=== PATIENT | male | born 1960 | race Caucasian/White ===

== ENCOUNTER → 2017-11-15 11:43 | Outpatient (CLI) | payer OTHER, SELFPAY ==
[2017-11-15 12:17] LABS: Alanine Aminotransferase 108 IU/L (21-72); Albumin 4.4 g/dL (3.5-5.0); Albumin Globulin Ratio 1.5 (1.0-2.8); Alkaline Phosphatase 49 U/L (38-126); Aspartate Aminotransferase 100 IU/L (17-59); Bilirubin Total 0.5 mg/dL (0.2-1.3); Blood Urea Nitrogen 13 mg/dL (9-20); Calcium 9.6 mg/dL (8.4-10.2); Carbon Dioxide 28 mmol/L (22-32); Chloride 102 mmol/L (98-107); Estimated Glomerular Filt Rate > 60.0 mL/min (>60); Glucose 107 mg/dL (70-100); HEMOLYSIS 15 (0-50); Potassium 4.1 mmol/L (3.4-5.1); Sodium 141 mmol/L (137-145); Total Protein 7.4 g/dL (6.3-8.2)
[2017-11-15 12:34] LABS: Free T3, Triiodothyronine Free 3.23 pg/mL (2.77-5.27); Free T4, Direct Thyroxine 0.76 ng/dL (0.78-2.19)
[2017-11-15 12:48] LABS: Thyroid Stimulating Hormone 9.58 uIU/mL (0.47-4.68)
== END ==
PROVIDERS: PCP Family Medicine; Visit Provider Family Medicine
DX: F10.10 Alcohol abuse, uncomplicated (principal); R79.89 Other specified abnormal findings of blood chemistry; E03.9 Hypothyroidism, unspecified
CPT/HCPCS: 36415; 80053; 84439; 84443; 84481

== ENCOUNTER → 2017-12-31 12:12 | Outpatient (CLI) | payer OTHER, SELFPAY ==
[2017-12-31 13:31] LABS: Alanine Aminotransferase 73 IU/L (21-72); Albumin 4.4 g/dL (3.5-5.0); Albumin Globulin Ratio 1.5 (1.0-2.8); Alkaline Phosphatase 46 U/L (38-126); Aspartate Aminotransferase 56 IU/L (17-59); BUN Creatinine Ratio 12.7 (6-22); Bilirubin Total 0.3 mg/dL (0.2-1.3); Blood Urea Nitrogen 14 mg/dL (9-20); Calcium 9.7 mg/dL (8.4-10.2); Carbon Dioxide 24 mmol/L (22-32); Chloride 101 mmol/L (98-107); Estimated Glomerular Filt Rate > 60.0 mL/min (>60); Globulin 2.9 g/dL (1.7-4.1); Glucose 73 mg/dL (70-100); HEMOLYSIS < 15 (0-50); Potassium 5.3 mmol/L (3.4-5.1); Sodium 140 mmol/L (137-145); Total Protein 7.3 g/dL (6.3-8.2)
[2017-12-31 14:02] LABS: Thyroid Stimulating Hormone 3.22 uIU/mL (0.47-4.68)
== END ==
PROVIDERS: PCP Family Medicine; Visit Provider Family Medicine
DX: E03.9 Hypothyroidism, unspecified (principal); R74.8 Abnormal levels of other serum enzymes
CPT/HCPCS: 36415; 80053; 84443

== ENCOUNTER → 2020-05-26 09:34 | Outpatient (CLI) | payer OTHER, SELFPAY ==
[2020-05-26] MEDS: COVID-19 VACC, Ad26(JANSSEN)/PF 0.5 ML IM (09:39)
== END ==
PROVIDERS: PCP Family Medicine; Visit Provider Internal Medicine
DX: Z23 Encounter for immunization (principal)
CPT/HCPCS: 0031A; 91303

== ENCOUNTER → 2020-06-03 07:19 | Outpatient (CLI) | payer OTHER, SELFPAY ==
[2020-06-03 08:30] LABS: Add Manual Diff / Slide Review NO; Basophils Absolute Auto 100 /uL (0-100); Basophils Percent Auto 1.1 % (0-2); Eosinophils Absolute Auto 100 /uL (0-450); Eosinophils Percent Auto 1.9 % (2-4); Hematocrit 46.5 % (41-53); Hemoglobin 15.3 g/dL (13.5-17.5); Lymphocytes Absolute Auto 1600 /uL (1100-4500); Lymphocytes Percent Auto 23.6 % (25-40); Mean Corpuscular HGB Conc 32.9 % (30-36); Mean Corpuscular Hemoglobin 33.3 PG (26-34); Mean Corpuscular Volume 100.9 fL (80-100); Monocytes Absolute Auto 800 /uL (0-900); Monocytes Percent Auto 12.1 % (3-14); Neutrophils Absolute Auto 4200 /uL (1500-7000); Neutrophils Percent Auto 61.3 % (50-75); Platelet Count 244 X10^3/uL (150-400); Red Blood Cell Count 4.61 X10^6/uL (4.5-5.9); Red Cell Distribution Width 14.5 % (11.6-14.8); White Blood Cell Count 6.9 X10^3/uL (4.5-11.0)
[2020-06-03 09:59] LABS: Alanine Aminotransferase 41 IU/L (<50); Albumin 4.4 g/dL (3.5-5.0); Albumin Globulin Ratio 1.4 (1.0-2.8); Alkaline Phosphatase 60 U/L (38-126); Aspartate Aminotransferase 49 IU/L (17-59); BUN Creatinine Ratio 13.8 (6-22); Bilirubin Total 0.4 mg/dL (0.2-1.3); Blood Urea Nitrogen 15 mg/dL (9-20); Calcium 10.2 mg/dL (8.4-10.2); Carbon Dioxide 22 mmol/L (22-32); Chloride 105 mmol/L (98-107); Cholesterol 227 mg/dL (140-199); Estimated Glomerular Filt Rate > 60.0 mL/min (>60); Globulin 3.2 g/dL (1.7-4.1); Glucose 112 mg/dL (70-100); HEMOLYSIS < 15 (0-50); Potassium 4.7 mmol/L (3.4-5.1); Sodium 138 mmol/L (137-145); Total Protein 7.6 g/dL (6.3-8.2); Triglycerides 93 mg/dL (35-150)
[2020-06-03 10:10] LABS: Free T3, Triiodothyronine Free 3.32 pg/mL (2.77-5.27); Free T4, Direct Thyroxine 0.97 ng/dL (0.78-2.19); LDL Cholesterol Calculated 92 mg/dL (<100)
[2020-06-03 10:11] LABS: HDL Cholesterol 116 mg/dL (40-60)
[2020-06-03 10:24] LABS: Thyroid Stimulating Hormone 8.97 uIU/mL (0.47-4.68)
[2020-06-04 06:10] LABS: Thyroid Peroxidase Antibodies >600 IU/mL (0-34)
== END ==
PROVIDERS: PCP Naturopath; Referring Provider Naturopath; Visit Provider Naturopath
DX: Z00.00 Encounter for general adult medical examination without abnormal findings (principal); E06.3 Autoimmune thyroiditis; K52.831 Collagenous colitis
CPT/HCPCS: 36415; 80053; 80061; 84439; 84443; 84481; 85025; 86376

== ENCOUNTER → 2020-07-19 07:56 | Outpatient (CLI) | payer OTHER, SELFPAY ==
[2020-07-19 09:21] LABS: Free T3, Triiodothyronine Free 5.65 pg/mL (2.77-5.27); Free T4, Direct Thyroxine 1.61 ng/dL (0.78-2.19)
[2020-07-19 09:37] LABS: Thyroid Stimulating Hormone < 0.015 uIU/mL (0.47-4.68)
== END ==
PROVIDERS: PCP Naturopath; Referring Provider Naturopath; Visit Provider Naturopath
DX: E06.3 Autoimmune thyroiditis (principal)
CPT/HCPCS: 36415; 84439; 84443; 84481

== ENCOUNTER → 2021-06-23 07:35 | Outpatient (CLI) | payer OTHER, MEDICAID, SELFPAY ==
[2021-06-23 08:52] LABS: Hemoglobin A1C% w Est Avg Glu 5.8 % (4.0-6.0)
[2021-06-23 10:10] LABS: Free T3, Triiodothyronine Free 3.12 pg/mL (2.77-5.27); Free T4, Direct Thyroxine 0.77 ng/dL (0.78-2.19)
[2021-06-23 10:24] LABS: Thyroid Stimulating Hormone 0.148 uIU/mL (0.47-4.68)
[2021-06-24 06:54] LABS: Thyroid Peroxidase Antibodies >600 IU/mL (0-34)
== END ==
PROVIDERS: PCP Naturopath; Referring Provider Naturopath; Visit Provider Naturopath
DX: Z00.00 Encounter for general adult medical examination without abnormal findings (principal); K52.831 Collagenous colitis; E06.3 Autoimmune thyroiditis
CPT/HCPCS: 36415; 83036; 84439; 84443; 84481; 86376

== ENCOUNTER → 2022-02-21 07:48 | Outpatient (CLI) | payer OTHER, MEDICAID, SELFPAY ==
[2022-02-21 09:36] LABS: Free T3, Triiodothyronine Free 3.36 pg/mL (2.77-5.27); Free T4, Direct Thyroxine 0.92 ng/dL (0.78-2.19)
[2022-02-21 09:49] LABS: Thyroid Stimulating Hormone 19.7 uIU/mL (0.47-4.68)
[2022-02-22 07:09] LABS: Thyroid Peroxidase Antibodies >600 IU/mL (0-34)
== END ==
PROVIDERS: PCP Registered Nurse Diabetes Educator; Referring Provider Registered Nurse Diabetes Educator; Visit Provider Registered Nurse Diabetes Educator
DX: E03.9 Hypothyroidism, unspecified (principal)
CPT/HCPCS: 36415; 84439; 84443; 84481; 86376

== ENCOUNTER 2022-03-30 08:07 | Day surgery (SDC) | payer OTHER, MEDICAID, SELFPAY ==
[2022-03-30 08:16] VITALS: BP 142/85; PULSE 76; RESP 18; TEMP 36.4; O2SAT 100; BMI 33.9
[2022-03-30] MEDS: LACTATED RINGERS 1,000 ML 150 ML IV (08:39)
--- NOTE | 2022-03-30 09:15 | PM.HP.1 ---
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) Irritable bowel syndrome Peyronie disease Family & Social History Family History Father Diabetes mellitus Hypertension Cancer Atrial fibrillation Grandfather Diabetes mellitus Mother Cancer Social History: household members significant other,family lives independently Yes caregiver/support person No Tobacco & Substance use: Smoking Status Former smoker alcohol intake current alcohol intake frequency 3 or more drinks per day Substance Use Type marijuana Meds Home Medications and Allergies Home Medications Medication Instructions Recorded Confirmed Type levothyroxine 200 mcg tablet 200 mcg PO DAILY #60 tabs 03/15/22 03/15/22 Rx peg 3350-electrolytes 236 240 ml PO Q10M #4,000 mL 03/15/22 03/15/22 Rx gram-22.74 gram-6.74 gram-5.86 gram solution (Golytely) Rubed- Carditone 2 caplet PO DAILY 03/30/22 History Ruved- Join/Muscle Support 2 caplet PO DAILY 03/30/22 History cholecalciferol (vitamin D3) 50 50 mcg PO DAILY 03/30/22 03/30/22 History mcg (2,000 unit) tablet (Vitamin D3) Allergies Allergy/AdvReac Type Severity Reaction Status Date / Time Proton Pump Inhibitors AdvReac Mild skin Verified 03/30/22 08:17 jim leonardo Review of Systems Review of Systems ROS: Yes All systems reviewed with the patient and are negative except as otherwise documented Exam Vital Signs (past 8 hours): - 03/30/22 08:16 Temperature 97.5 F L Pulse Rate 76 Respiratory Rate 18 Blood Pressure 142/85 H Pulse Oximetry 100 Oxygen Delivery Method Room Air Oxygen Delivery Method Room Air Const General: cooperative, healthy appearing and comfortable [facility] Head: normal to inspection, normocephalic and atraumatic Face and sinus: normal facial exam Eyes General: appearance normal, both eyes and all related structures Neck Neck: full ROM and trachea midline Chest Chest: normal inspection of the chest Resp Effort & Inspection: normal respiratory effort and able to speak in complete sentences Cardio Rate: regular rate Rhythm: regular rhythm GI Palpation: soft Skin General: turgor normal Neuro General: patient alert, patient awake and patient oriented x3 Extrem General: normal to inspection Psych Appearance: grossly normal Judgment: judgment good Assessment & Plan Assessment & Plan narrative: h/o colon polyps Colonoscopy with MAC, possible polypectomy Time Spent With Patient Time with patient: less than 30 minutes Critical Care time: I spent a total of [] minutes of critical care time on this patient's care today; this time is exclusive of procedural time.
--- NOTE | 2022-03-30 09:39 | PM.OP.COLON ---
Operative Date/Time/Diagnoses Date of procedure: 03/30/22 Time of procedure: 09:39 Pre-op diagnosis: History of colon polyps Post-op diagnosis: same Procedure & Clinicians Study performed: Colonoscopy with MAC Same procedure as scheduled: Yes Indications: History of colon polyps Surgeon: Anna Mendez Procedure Notes Procedure in detail: Preop diagnosis: History of colon polyps Postop diagnosis: Same Operative procedure: Colonoscopy using MAC Surgeon: Lucy Mendez MD Findings: Diverticulosis. No polyps identified. Normal mucosa Procedure: Patient placed in lateral position. Rectal exam performed showing normal tone no masses. Scope was inserted into the rectum advanced to ileocecal valve with minimal difficulty. Insufflation and extraction scope and the above findings. Retroflex was included in the rectum Impression: Sigmoid diverticulosis of moderate size and number. No polyps identified. Plan: Repeat colonoscopy in 5 years Findings: divertiulosis Specimen(s): none sent Complications: none Post-procedure Recommendations: Colonoscopy in 5 years Follow up: as needed Disposition: PACU
[2022-03-30 09:40] VITALS: BP 114/66; PULSE 66; RESP 11; TEMP 36.1; O2SAT 96
[2022-03-30 09:47] VITALS: BP 116/75; PULSE 62; RESP 16; O2SAT 96
[2022-03-30 09:52] VITALS: BP 118/75; PULSE 69; RESP 16; TEMP 36.2; O2SAT 98
== END 2022-03-30 10:01 | disposition home or self-care (01) ==
PROVIDERS: PCP Registered Nurse Diabetes Educator; Referring Provider Surgery; Visit Provider Surgery
PROC: 0DJD8ZZ Inspection of Lower Intestinal Tract, Via Natural or Artificial Opening Endoscopic (ICD-10-PCS; CPT 45378; principal; 2022-03-30 09:15)
DX: Z12.11 Encounter for screening for malignant neoplasm of colon (principal); Z86.010 Personal history of colon polyps; K57.30 Diverticulosis of large intestine without perforation or abscess without bleeding
CPT/HCPCS: 45378; J2704

== ENCOUNTER → 2022-05-01 07:48 | Outpatient (CLI) | payer OTHER, MEDICAID, SELFPAY ==
--- NOTE | 2022-05-01 07:50 | DI.RAD.S_ITS ---
PROCEDURE: XR ANKLE RT MIN 3V INDICATIONS: eval chronic R ankle pain TECHNIQUE: 3 views of the ankle were acquired. COMPARISON: None. FINDINGS: Bones: No fractures or dislocations. Ankle mortise is normally aligned. No suspicious bony lesions. Well-defined plantar calcaneal enthesophyte is seen. Small dorsal calcaneal enthesophyte is also noted. Soft tissues: No tibiotalar joint effusion. Achilles tendon appears normal. IMPRESSION: Intact ankle mortise. No ankle fracture or dislocation. Calcaneal enthesophytes. Dictated by: Yg Coon M.D. on 05/01/2022 at 13:06 Approved by: Yg Coon M.D. on 05/01/2022 at 13:07
--- NOTE | 2022-05-01 07:50 | DI.RAD.S_ITS ---
PROCEDURE: XR LUMBAR SPINE MIN 4V INDICATIONS: BLE sciatica/LBP TECHNIQUE: 5 views of the lumbar spine were acquired, including bilateral oblique views. COMPARISON: None. FINDINGS: Bones: 5 nonrib-bearing vertebrae are present. There is straightening of normal lumbar lordosis. Degenerative endplate changes, loss of disc height and bilateral facet arthrosis is seen throughout lumbar spine most notably at L4-5 level. No vertebral body compression fractures. No suspicious bony lesions. Soft tissues: Overlying bowel gas pattern is normal. No suspicious soft tissue calcifications. Oblique images: No pars defects. Bilateral bony foraminal stenosis at L4-5 level is seen. IMPRESSION: 1. Mild degenerative disc disease throughout lumbar spine most notably at L4-5 level. No acute compression fracture or spondylolisthesis. 2. No pars defects. Mild bilateral bony foraminal stenosis at L4-5 level. Dictated by: Yg Coon M.D. on 05/01/2022 at 13:07 Approved by: Yg Coon M.D. on 05/01/2022 at 13:08
[2022-05-01 08:50] LABS: Hematocrit 44.8 % (41-53); Hemoglobin 15.2 g/dL (13.5-17.5); Mean Corpuscular Hemoglobin 33.8 PG (26-34); Mean Corpuscular Volume 99.4 fL (80-100); Platelet Count 231 X10^3/uL (150-400); Red Blood Cell Count 4.51 X10^6/uL (4.5-5.9); Red Cell Distribution Width 13.6 % (11.6-14.8); White Blood Cell Count 6.1 X10^3/uL (4.5-11.0)
[2022-05-01 09:17] LABS: Alanine Aminotransferase 25 IU/L (<50); Albumin 4.4 g/dL (3.5-5.0); Albumin Globulin Ratio 1.2 (1.0-2.8); Alkaline Phosphatase 59 U/L (38-126); Aspartate Aminotransferase 35 IU/L (17-59); BUN Creatinine Ratio 15.3 (6-22); Bilirubin Total 0.5 mg/dL (0.2-1.3); Blood Urea Nitrogen 18 mg/dL (9-20); Calcium 9.1 mg/dL (8.4-10.2); Carbon Dioxide 27 mmol/L (22-32); Chloride 105 mmol/L (98-107); Cholesterol 243 mg/dL (140-199); Estimated Glomerular Filt Rate > 60 mL/min (>60); Globulin 3.8 g/dL (1.7-4.1); Glucose 93 mg/dL (80-110); HEMOLYSIS < 15 (0-50); Potassium 4.6 mmol/L (3.4-5.1); Sodium 139 mmol/L (137-145); Total Protein 8.2 g/dL (6.3-8.2); Triglycerides 80 mg/dL (35-150); Uric Acid 9.3 mg/dL (3.5-8.5)
[2022-05-01 09:29] LABS: Hemoglobin A1C% w Est Avg Glu 5.8 % (4.0-6.0)
[2022-05-01 09:41] LABS: TSH w/ Reflex to FT4 0.88 uIU/mL (0.47-4.68)
[2022-05-01 09:52] LABS: HDL Cholesterol 116 mg/dL (40-60); LDL Cholesterol Calculated 111 mg/dL (<100)
== END ==
PROVIDERS: PCP Registered Nurse Diabetes Educator; Referring Provider Registered Nurse Diabetes Educator; Visit Provider Registered Nurse Diabetes Educator
DX: M54.41 Lumbago with sciatica, right side (principal); M54.42 Lumbago with sciatica, left side; M51.36 Other intervertebral disc degeneration, lumbar region; M48.061 Spinal stenosis, lumbar region without neurogenic claudication; M25.571 Pain in right ankle and joints of right foot; M77.31 Calcaneal spur, right foot; M25.50 Pain in unspecified joint; Z00.00 Encounter for general adult medical examination without abnormal findings; E03.8 Other specified hypothyroidism; E06.3 Autoimmune thyroiditis; G89.29 Other chronic pain
CPT/HCPCS: 36415; 72110; 73610; 80053; 80061; 83036; 84443; 84550; 85027

== ENCOUNTER → 2022-07-11 14:51 | Outpatient (CLI) | payer OTHER, MEDICAID, SELFPAY ==
[2022-07-11 15:28] LABS: D Dimer 1631 ng/ml (<500)
== END ==
PROVIDERS: PCP Registered Nurse Diabetes Educator; Referring Provider Family Medicine; Visit Provider Family Medicine
DX: M79.604 Pain in right leg (principal)
CPT/HCPCS: 36415; 85379

== ENCOUNTER → 2022-07-12 08:44 | Outpatient (CLI) | payer OTHER, MEDICAID, SELFPAY ==
--- NOTE | 2022-07-12 08:45 | DI.US.S_ITS ---
PROCEDURE: US PERIPH VENOUS LOW EXTREM RT INDICATIONS: RIGHT LEG PAIN/REDNESS. ? DVT. ELEVATED D DIMER TECHNIQUE: Real-time imaging, as well as color and pulse Doppler interrogation, were performed of the lower extremity deep veins from the inguinal ligament to the popliteal fossa. COMPARISON: None. FINDINGS: The common femoral, femoral and popliteal veins are normally compressible, and free of intraluminal thrombus. Color and pulse Doppler demonstrate normal phasic intraluminal flow. There is normal augmentation response to distal compression maneuver. IMPRESSION: Negative for deep venous thrombosis of the right lower extremity. Dictated by: Steve Powell M.D. on 07/12/2022 at 10:24 Approved by: Steve Powell M.D. on 07/12/2022 at 10:25
== END ==
PROVIDERS: PCP Registered Nurse Diabetes Educator; Referring Provider Family Medicine; Visit Provider Family Medicine
DX: M79.604 Pain in right leg (principal)
CPT/HCPCS: 93971

== ENCOUNTER → 2022-07-26 10:48 | Outpatient (CLI) | payer OTHER, MEDICAID, SELFPAY ==
[2022-07-26 12:01] LABS: Add Manual Diff / Slide Review NO; Basophils Absolute Auto 100 /uL (0-100); Basophils Percent Auto 1.1 % (0-2); Eosinophils Absolute Auto 100 /uL (0-450); Hematocrit 42.7 % (41-53); Hemoglobin 14.6 g/dL (13.5-17.5); Lymphocytes Absolute Auto 1300 /uL (1100-4500); Lymphocytes Percent Auto 17.3 % (25-40); Mean Corpuscular HGB Conc 34.2 % (30-36); Mean Corpuscular Hemoglobin 34.5 PG (26-34); Mean Corpuscular Volume 100.8 fL (80-100); Monocytes Absolute Auto 800 /uL (0-900); Neutrophils Absolute Auto 5200 /uL (1500-7000); Neutrophils Percent Auto 69.6 % (50-75); Platelet Count 231 X10^3/uL (150-400); Red Blood Cell Count 4.24 X10^6/uL (4.5-5.9); Red Cell Distribution Width 14.4 % (11.6-14.8); White Blood Cell Count 7.5 X10^3/uL (4.5-11.0)
[2022-07-26 12:08] LABS: Appearance Urine UA CLEAR; Bilirubin Urine UA NEGATIVE (NEGATIVE); Color Urine UA YELLOW; Glucose Urine UA NEGATIVE (Negative); Ketones Urine UA NEGATIVE (NEGATIVE); Leukocyte Esterase Urine UA NEGATIVE (NEGATIVE); Nitrite Urine UA NEGATIVE (Negative); Occult Blood Urine UA NEGATIVE (Negative); Protein Urine UA NEGATIVE (Negative); Specific Gravity Urine UA <=1.005 (1.000-1.035); Urobilinogen Urine UA 0.2 E.U./dL (0.2)
[2022-07-26 12:23] LABS: Bacteria Urine None Seen; RBC Urine None Seen (0-5/HPF); Squamous Epithelial Cell Urine None Seen (0-5/HPF); WBC Urine None Seen (0-5/HPF)
[2022-07-26 12:24] LABS: Culture Indicated Urine Cult Not Indicated
[2022-07-26 12:26] LABS: Alanine Aminotransferase 70 IU/L (<50); Albumin Globulin Ratio 1.3 (1.0-2.8); Alkaline Phosphatase 53 U/L (38-126); Aspartate Aminotransferase 65 IU/L (17-59); BUN Creatinine Ratio 10.6 (6-22); Bilirubin Total 0.3 mg/dL (0.2-1.3); Blood Urea Nitrogen 14 mg/dL (9-20); Carbon Dioxide 23 mmol/L (22-32); Chloride 105 mmol/L (98-107); Estimated Glomerular Filt Rate > 60 mL/min (>60); Glucose 82 mg/dL (80-110); HEMOLYSIS < 15 (0-50); Lipase 94 U/L (23-300); Potassium 4.6 mmol/L (3.4-5.1); Sodium 136 mmol/L (137-145)
[2022-07-26 12:47] LABS: TSH w/ Reflex to FT4 0.12 uIU/mL (0.47-4.68)
[2022-07-27 17:55] LABS: Interpretation Negative (Negative)
[2022-07-27 18:10] LABS: Deamidated Gliadin Ab IgA 4 units (0-19); Deamidated Gliadin Ab IgG 1 units (0-19); Immunoglobulin A,Qn 236 mg/dL (90-386); t-Transglutaminase IgA <2 U/mL (0-3)
== END ==
PROVIDERS: PCP Registered Nurse Diabetes Educator; Referring Provider Registered Nurse Diabetes Educator; Visit Provider Registered Nurse Diabetes Educator
DX: K52.831 Collagenous colitis (principal); R14.0 Abdominal distension (gaseous); R11.0 Nausea; R14.2 Eructation
CPT/HCPCS: 36415; 80053; 81001; 82784; 83013; 83516; 83690; 84439; 84443; 85025

== ENCOUNTER → 2022-08-03 07:39 | Outpatient (CLI) | payer OTHER, MEDICAID, SELFPAY ==
[2022-08-03 09:26] LABS: HEMOLYSIS < 15 (0-50); Iron 99 ug/dL (49-181)
[2022-08-03 09:29] LABS: Alanine Aminotransferase 61 IU/L (<50); Albumin 4.1 g/dL (3.5-5.0); Albumin Globulin Ratio 1.2 (1.0-2.8); Alkaline Phosphatase 60 U/L (38-126); Aspartate Aminotransferase 57 IU/L (17-59); BUN Creatinine Ratio 13.5 (6-22); Bilirubin Total 0.5 mg/dL (0.2-1.3); Blood Urea Nitrogen 14 mg/dL (9-20); Calcium 9.2 mg/dL (8.4-10.2); Carbon Dioxide 23 mmol/L (22-32); Chloride 103 mmol/L (98-107); Estimated Glomerular Filt Rate > 60 mL/min (>60); Globulin 3.3 g/dL (1.7-4.1); Glucose 94 mg/dL (80-110); HEMOLYSIS < 15 (0-50); Sodium 137 mmol/L (137-145); Total Protein 7.4 g/dL (6.3-8.2)
[2022-08-03 09:40] LABS: Percent Iron Saturation 28 % (20-50); Total Iron Binding Capacity 357 ug/dL (261-462); Transferrin 291 mg/dL (206-381)
[2022-08-03 10:04] LABS: Ferritin 72 ng/mL (18-464)
[2022-08-04 03:50] LABS: HBsAg Screen Negative (Negative); Hepatitis A Antibody IgM Negative (Negative); Hepatitis B Core Antibody IgM Negative (Negative); Hepatitis C Antibody Non Reactive (Non Reactive)
== END ==
PROVIDERS: PCP Registered Nurse Diabetes Educator; Referring Provider Registered Nurse Diabetes Educator; Visit Provider Registered Nurse Diabetes Educator
DX: F10.90 Alcohol use, unspecified, uncomplicated (principal); R11.0 Nausea; R74.8 Abnormal levels of other serum enzymes
CPT/HCPCS: 36415; 80053; 80074; 82728; 83540; 83550

== ENCOUNTER → 2022-08-09 06:44 | Outpatient (CLI) | payer OTHER, MEDICAID, SELFPAY ==
--- NOTE | 2022-08-09 06:45 | DI.US.S_ITS ---
PROCEDURE: US ABDOMEN LIMITED INDICATIONS: ABNORMAL LFTS; NAUSEA TECHNIQUE: Real-time scanning was performed of the abdominal and retroperitoneal organs, with image documentation. COMPARISON: None. FINDINGS: Liver: Increased liver echogenicity with posterior attenuation, most consistent with moderate to severe steatosis. Gallbladder: Cholelithiasis versus 4 millimeter benign polyps; no follow-up necessary given size. No wall thickening Biliary ducts: Intrahepatic bile ducts are non-dilated. Extrahepatic bile duct caliber measures 4 mm. Normal is 6-7 mm or less in diameter, or 10 mm or less post-cholecystectomy. Pancreas: Visualized portions of the pancreas are sonographically normal. Miscellaneous: No free abdominal fluid. IMPRESSION: Cholelithiasis versus small benign polyps. No wall thickening. No further follow-up required based on the size, if they are polyps. Moderate to severe steatosis. In the absence of alcohol use or other confounding factors, elevated LFTs may indicate non-alcoholic steatohepatitis (HANCOCK). Dictated by: Randal Horner M.D. on 08/09/2022 at 13:00 Approved by: Randal Horner M.D. on 08/09/2022 at 13:03
== END ==
PROVIDERS: PCP Registered Nurse Diabetes Educator; Referring Provider Registered Nurse Diabetes Educator; Visit Provider Registered Nurse Diabetes Educator
DX: K76.0 Fatty (change of) liver, not elsewhere classified (principal); R74.8 Abnormal levels of other serum enzymes; R11.0 Nausea; R14.0 Abdominal distension (gaseous); R14.2 Eructation; F10.90 Alcohol use, unspecified, uncomplicated
CPT/HCPCS: 76705

== ENCOUNTER → 2022-12-19 10:39 | Outpatient (CLI) | payer OTHER, MEDICAID, SELFPAY ==
[2022-12-24] LABS: Pancreatic Elastase, Fecal 244 (>200)
== END ==
PROVIDERS: PCP Registered Nurse Diabetes Educator; Referring Provider Specialist; Visit Provider Specialist
DX: K52.9 Noninfective gastroenteritis and colitis, unspecified (principal)
CPT/HCPCS: 82656

== ENCOUNTER → 2023-01-08 11:22 | Outpatient (CLI) | payer OTHER, MEDICAID, SELFPAY | PROVIDERS: PCP Registered Nurse Diabetes Educator; Referring Provider Registered Nurse Diabetes Educator; Visit Provider Registered Nurse Diabetes Educator | DX: E03.9 Hypothyroidism, unspecified (principal) | CPT/HCPCS: 36415; 84443 ==

== ENCOUNTER → 2023-03-08 08:02 | Outpatient (CLI) | payer OTHER, MEDICAID, SELFPAY ==
[2023-03-08 08:28] LABS: Hematocrit 43.9 % (41-53); Hemoglobin 14.9 g/dL (13.5-17.5); Mean Corpuscular HGB Conc 33.9 % (30-36); Mean Corpuscular Hemoglobin 33.7 PG (26-34); Mean Corpuscular Volume 99.4 fL (80-100); Platelet Count 315 X10^3/uL (150-400); Red Blood Cell Count 4.41 X10^6/uL (4.5-5.9); Red Cell Distribution Width 12.9 % (11.6-14.8); White Blood Cell Count 6.9 X10^3/uL (4.5-11.0)
[2023-03-08 08:33] LABS: Hemoglobin A1C% w Est Avg Glu 5.7 % (4.0-6.0)
[2023-03-08 08:56] LABS: Alanine Aminotransferase 46 IU/L (<50); Albumin 3.9 g/dL (3.5-5.0); Albumin Globulin Ratio 1.3 (1.0-2.8); Alkaline Phosphatase 44 U/L (38-126); Aspartate Aminotransferase 34 IU/L (17-59); Bilirubin Total 0.4 mg/dL (0.2-1.3); Blood Urea Nitrogen 13 mg/dL (9-20); Calcium 9.5 mg/dL (8.4-10.2); Carbon Dioxide 21 mmol/L (22-32); Chloride 108 mmol/L (98-107); Cholesterol 189 mg/dL (140-199); Estimated Glomerular Filt Rate > 60 mL/min (>60); Globulin 2.9 g/dL (1.7-4.1); Glucose 113 mg/dL (80-110); HDL Cholesterol 45 mg/dL (40-60); HEMOLYSIS < 15 (0-50); LDL Cholesterol Calculated 115 mg/dL (<100); Potassium 4.4 mmol/L (3.4-5.1); Sodium 136 mmol/L (137-145); Total Protein 6.8 g/dL (6.3-8.2); Triglycerides 143 mg/dL (35-150)
[2023-03-08 09:17] LABS: TSH w/ Reflex to FT4 1.76 uIU/mL (0.47-4.68)
== END ==
PROVIDERS: PCP Registered Nurse Diabetes Educator; Referring Provider Registered Nurse Diabetes Educator; Visit Provider Registered Nurse Diabetes Educator
DX: E78.00 Pure hypercholesterolemia, unspecified (principal); R73.03 Prediabetes; E03.8 Other specified hypothyroidism; E06.3 Autoimmune thyroiditis; R74.8 Abnormal levels of other serum enzymes; K58.0 Irritable bowel syndrome with diarrhea; K52.831 Collagenous colitis; E79.0 Hyperuricemia without signs of inflammatory arthritis and tophaceous disease; R03.0 Elevated blood-pressure reading, without diagnosis of hypertension
CPT/HCPCS: 36415; 80053; 80061; 83036; 84443; 84550; 85027

== ENCOUNTER → 2023-12-05 13:18 | Outpatient (CLI) | payer OTHER, MEDICAID, SELFPAY ==
[2023-12-05 13:46] LABS: Add Manual Diff / Slide Review NO; Basophils Absolute Auto 0 /uL (0-100); Basophils Percent Auto 0.8 % (0-2); Eosinophils Absolute Auto 100 /uL (0-450); Eosinophils Percent Auto 1.2 % (2-4); Hematocrit 43.9 % (41-53); Lymphocytes Absolute Auto 1000 /uL (1100-4500); Lymphocytes Percent Auto 16.6 % (25-40); Mean Corpuscular HGB Conc 34.1 % (30-36); Mean Corpuscular Hemoglobin 35.2 PG (26-34); Mean Corpuscular Volume 103.2 fL (80-100); Monocytes Absolute Auto 900 /uL (0-900); Monocytes Percent Auto 14.8 % (3-14); Neutrophils Absolute Auto 4000 /uL (1500-7000); Neutrophils Percent Auto 66.6 % (50-75); Platelet Count 165 X10^3/uL (150-400); Red Blood Cell Count 4.25 X10^6/uL (4.5-5.9); Red Cell Distribution Width 13.7 % (11.6-14.8); White Blood Cell Count 5.9 X10^3/uL (4.5-11.0)
[2023-12-05 14:20] LABS: Alanine Aminotransferase 133 IU/L (<50); Albumin 4.1 g/dL (3.5-5.0); Albumin Globulin Ratio 1.4 (1.0-2.8); Alkaline Phosphatase 102 U/L (38-126); Aspartate Aminotransferase 166 IU/L (17-59); Bilirubin Total 0.7 mg/dL (0.2-1.3); Blood Urea Nitrogen 17 mg/dL (9-20); Calcium 9.3 mg/dL (8.4-10.2); Carbon Dioxide 24 mmol/L (22-32); Chloride 101 mmol/L (98-107); Estimated Glomerular Filt Rate > 60 mL/min (>60); Globulin 2.9 g/dL (1.7-4.1); Glucose 121 mg/dL (80-110); HEMOLYSIS 15 (0-50); Magnesium 1.8 mg/dL (1.6-2.3); Potassium 4.6 mmol/L (3.4-5.1); Sodium 134 mmol/L (137-145)
[2023-12-05 14:36] LABS: Free T3, Triiodothyronine Free 3.39 pg/mL (2.77-5.27)
[2023-12-05 14:50] LABS: TSH w/ Reflex to FT4 2.91 uIU/mL (0.47-4.68)
[2023-12-05 15:09] LABS: Vitamin B12 553 pg/mL (239-931)
== END ==
PROVIDERS: PCP Registered Nurse Diabetes Educator; Referring Provider Physician Assistant; Visit Provider Physician Assistant
DX: R25.1 Tremor, unspecified (principal); E03.9 Hypothyroidism, unspecified; Z12.5 Encounter for screening for malignant neoplasm of prostate; R74.8 Abnormal levels of other serum enzymes; D75.89 Other specified diseases of blood and blood-forming organs
CPT/HCPCS: 36415; 80053; 80074; 82607; 83735; 84443; 84481; 85025; 86376; 87522; G0103

== ENCOUNTER → 2023-12-07 07:58 | Outpatient (CLI) | payer OTHER, MEDICAID, SELFPAY ==
[2023-12-09 05:40] LABS: HBsAg Screen Negative (Negative); Hepatitis A Antibody IgM Negative (Negative); Hepatitis B Core Antibody IgM Negative (Negative); Hepatitis C Antibody Non Reactive (Non Reactive)
== END ==
PROVIDERS: PCP Registered Nurse Diabetes Educator; Referring Provider Physician Assistant; Visit Provider Physician Assistant
DX: R74.8 Abnormal levels of other serum enzymes (principal); R63.4 Abnormal weight loss
CPT/HCPCS: 36415; 80074; 87522

== ENCOUNTER → 2024-01-28 10:24 | Outpatient (CLI) | payer OTHER, MEDICAID, SELFPAY ==
[2024-01-28 12:13] LABS: Alanine Aminotransferase 116 IU/L (<50); Albumin 3.6 g/dL (3.5-5.0); Albumin Globulin Ratio 1.2 (1.0-2.8); Alkaline Phosphatase 72 U/L (38-126); Aspartate Aminotransferase 187 IU/L (17-59); Bilirubin Total 0.5 mg/dL (0.2-1.3); Blood Urea Nitrogen 11 mg/dL (9-20); Calcium 9.1 mg/dL (8.4-10.2); Carbon Dioxide 28 mmol/L (22-32); Chloride 104 mmol/L (98-107); Estimated Glomerular Filt Rate > 60 mL/min (>60); Globulin 3.1 g/dL (1.7-4.1); Glucose 87 mg/dL (80-110); HEMOLYSIS < 15 (0-50); Potassium 4.6 mmol/L (3.4-5.1); Sodium 135 mmol/L (137-145); Total Protein 6.7 g/dL (6.3-8.2)
[2024-01-28 22:14] LABS: Prostate Specific Antigen 4.08 ng/mL (0.10-4.00)
== END ==
PROVIDERS: PCP Registered Nurse Diabetes Educator; Referring Provider Urology; Visit Provider Urology
DX: N40.1 Benign prostatic hyperplasia with lower urinary tract symptoms (principal); R97.20 Elevated prostate specific antigen [PSA]; R74.8 Abnormal levels of other serum enzymes
CPT/HCPCS: 80053; 84153

== ENCOUNTER → 2024-03-09 08:50 | Outpatient (CLI) | payer OTHER, SELFPAY ==
[2024-03-09 09:25] LABS: Hematocrit 44.5 % (41-53); Hemoglobin 15.1 g/dL (13.5-17.5); Mean Corpuscular Hemoglobin 34.9 PG (26-34); Mean Corpuscular Volume 102.6 fL (80-100); Platelet Count 315 X10^3/uL (150-400); Red Blood Cell Count 4.34 X10^6/uL (4.5-5.9); White Blood Cell Count 6.1 X10^3/uL (4.5-11.0)
[2024-03-09 09:37] LABS: Hemoglobin A1C% w Est Avg Glu 5.8 % (4.0-6.0)
[2024-03-09 09:48] LABS: Alanine Aminotransferase 32 IU/L (<50); Albumin 4.1 g/dL (3.5-5.0); Albumin Globulin Ratio 1.5 (1.0-2.8); Alkaline Phosphatase 52 U/L (38-126); Aspartate Aminotransferase 34 IU/L (17-59); BUN Creatinine Ratio 11.8 (6-22); Bilirubin Total 0.3 mg/dL (0.2-1.3); Blood Urea Nitrogen 14 mg/dL (9-20); Calcium 9.3 mg/dL (8.4-10.2); Carbon Dioxide 29 mmol/L (22-32); Chloride 103 mmol/L (98-107); Cholesterol 209 mg/dL (140-199); Estimated Glomerular Filt Rate > 60 mL/min (>60); Globulin 2.8 g/dL (1.7-4.1); Glucose 109 mg/dL (80-110); HDL Cholesterol 49 mg/dL (40-60); HEMOLYSIS < 15 (0-50); LDL Cholesterol Calculated 138 mg/dL (<100); Potassium 4.8 mmol/L (3.4-5.1); Sodium 137 mmol/L (137-145); Total Protein 6.9 g/dL (6.3-8.2); Triglycerides 109 mg/dL (35-150)
[2024-03-09 10:18] LABS: TSH w/ Reflex to FT4 1.93 uIU/mL (0.47-4.68)
== END ==
PROVIDERS: PCP Registered Nurse Diabetes Educator; Referring Provider Registered Nurse Diabetes Educator; Visit Provider Registered Nurse Diabetes Educator
DX: R73.03 Prediabetes (principal); E03.8 Other specified hypothyroidism; E06.3 Autoimmune thyroiditis; E78.5 Hyperlipidemia, unspecified; K52.831 Collagenous colitis; F10.90 Alcohol use, unspecified, uncomplicated
CPT/HCPCS: 36415; 80053; 80061; 83036; 84443; 85027

== ENCOUNTER → 2024-04-22 12:37 | Outpatient (CLI) | payer OTHER, SELFPAY ==
[2024-04-23 07:11] LABS: PSA Free % 21.1 % (.); PSA, Total 4.5 ng/mL (0.0-4.0)
== END ==
PROVIDERS: PCP Registered Nurse Diabetes Educator; Referring Provider Urology; Visit Provider Urology
DX: N40.1 Benign prostatic hyperplasia with lower urinary tract symptoms (principal); R97.20 Elevated prostate specific antigen [PSA]
CPT/HCPCS: 36415; 84153; 84154

== ENCOUNTER → 2024-08-10 10:21 | Outpatient (CLI) | payer OTHER, SELFPAY ==
[2024-08-10 11:55] LABS: Prostate Specific Antigen 6.57 ng/mL (0.10-4.00)
== END ==
PROVIDERS: PCP Registered Nurse Diabetes Educator; Referring Provider Urology; Visit Provider Urology
DX: N40.1 Benign prostatic hyperplasia with lower urinary tract symptoms (principal); R97.20 Elevated prostate specific antigen [PSA]
CPT/HCPCS: 36415; 84153

== ENCOUNTER → 2024-09-06 09:08 | Outpatient (CLI) | payer OTHER, SELFPAY ==
--- NOTE | 2024-09-06 09:10 | DI.MRI.S_ITS ---
PROCEDURE: MR PELVIC PROSTATE PROTOCOL INDICATIONS: 64 y/o M w/ elevated PSA, please eval. TECHNIQUE: Coronal HASTE, axial T1 FSE with fat saturation, 3-plane nonbreath-hold T2 FSE. After the administration of contrast, dynamic axial, delayed axial and coronal VIBE or 2-D FLASH with fat saturation through the pelvis. Diffusion weighted imaging and ADC was performed. COMPARISON: None. FINDINGS: Image quality: Diffusion weighted and dynamic contrast enhanced images are diagnostic. Prostate: Gland size is 4.9 x 4.1 x 4.6 cm; ellipsoid gland volume is 48.1 mL. PSA density is 0.137 Transitional zone heterogenous nodules are present, either well encapsulated or mostly encapsulated, compatible with PI-RADS 1 or 2 likely BPH nodules. Mildly T2 hypointense heterogenous striated appearance of the peripheral zone is commonly seen with current or prior prostatitis, PI-RADS 2. More focal area of signal abnormality in the right mid gland posterolateral peripheral zone measuring 1.4 x 1.1 x 0.8 cm (6/8, 4/14). T2 score 3. DCE positive. DWI score 3. PI-RADS 4 No extracapsular disease. No extracapsular extension. Genitourinary system: Trabeculated bladder usually chronic obstruction Bowel and peritoneum: No bowel obstruction no drainable ascites Nodes and vessels: No aneurysmal vessel identified. No enlarged lymph nodes by size criteria. Soft tissues: Right lower quadrant metallic artifact obscuring evaluation. Pelvic wall is unremarkable. Bones: No suspicious osseous enhancement. IMPRESSION: Predominant findings are BPH and sequelae of prostatitis. More focal area of signal abnormality is seen in the right posterolateral peripheral zone mid gland, PI-RADS 4. Differential includes a more focal area of prostatitis. No extracapsular disease or seminal vesicle involvement. No pelvic lymphadenopathy by size criteria. No aggressive osseous abnormality. Other findings above Dictated by: Vijay Ziegler M.D. on 09/07/2024 at 8:43 Approved by: Vijay Ziegler M.D. on 09/07/2024 at 8:48
== END ==
LOC: MRI 09:08
PROVIDERS: PCP Registered Nurse Diabetes Educator; Referring Provider Registered Nurse Diabetes Educator; Visit Provider Urology
DX: N40.0 Benign prostatic hyperplasia without lower urinary tract symptoms (principal); N32.89 Other specified disorders of bladder; R97.20 Elevated prostate specific antigen [PSA]
CPT/HCPCS: 72197; A9579

== ENCOUNTER 2024-10-02 06:30 | Day surgery (SDC) | payer OTHER, SELFPAY ==
[2024-09-24 09:55] VITALS: BMI 31.6
[2024-10-02] VITALS (7 sets, daily range): BP systolic 118–169; BP diastolic 79–105; PULSE 72–78; RESP 16; TEMP 36.7–37.2; O2SAT 94–98; BMI 31.6
[2024-10-02] MEDS: ACETAMINOPHEN 325 MG TABLET 650 MG PO (07:04)
[2024-10-02] MEDS: LACTATED RINGERS 1,000 ML 42 ML IV (07:04)
--- NOTE | 2024-10-02 07:34 | PM.PREOP ---
Pre-operative Note COVID-19 COVID-19 status: Not tested Interval Note History & Physical reviewed/Exam performed by Physician: Yes Changes to H&P: No
--- NOTE | 2024-10-02 08:00 | SUR.OPER ---
Lateral left (left side down) on stretcher, head on pillow, both legs bent with pillow between legs. bottom to the edge of the bed.
[2024-10-02] MEDS: LIDOCAINE 1% 20 ML INJ (08:11)
[2024-10-02] MEDS: LIDOCAINE 2% (GLYDO) 6 ML GEL TOP (08:31)
--- NOTE | 2024-10-02 08:58 | PM.OP.1 ---
Operative Date/Time/Diagnoses Date of procedure: 10/02/24 Time of procedure: 08:00 Pre-op diagnosis: Elevated PSA Post-op diagnosis: same Procedure & Clinicians Procedure: Transrectal ultrasound guided prostate biopsy Same procedure(s) as scheduled: Yes Indications: 64 y/o M noted to have an elevated PSA in the absence of a FH of prostate cancer and a benign HAWK. Discussed elevated PSA in detail and that an elevated PSA value does not represent cancer and that it can be elevated for a multitude of reasons (recent UTI, campbell catheterization, urinary obstruction, multiple ejaculations, colonoscopy, etc...). Also discussed that a TRUS prostate biopsy may not always identify prostate cancer that is present as it is a small sampling of the prostate gland and small foci of cancer may be missed. Lastly, discussed that some men may require multiple biopsies over several years in order to properly diagnose their prostate cancer. Discussed that his PSA still remains elevated at 6.57, however, has come down significantly from his previous value of 7.3. Therefore, after our last evaluation, a prostate MRI was performed. This was notable for a PIRADS 4 lesion. Discussed the need for a TRUS prostate biopsy, however, he was unable to tolerate this in clinic and it will be performed under anesthesia. Discussed the risks of the procedure to include but not limited to pain, bleeding, infection, blood in the stool for several weeks, blood and/or blood clots within the urine for several weeks as well as bloody ejaculate for several months. Up to 1-2% of men may get an infection from their biopsy that is severe enough that they require admission to the hospital and administration of IV antibiotics. To mitigate this risk, he will use an enema the night before and the morning of the procedure as well as take an antibiotic the morning before, the morning of and the morning after his biopsy. Surgeon: Julius Ernst Click Yes if Unassisted: Yes Anesthesia Type: General Operative Notes Findings: 48g prostate, no nodularity Closure Type: not applicable Specimen(s): other (prostate biopsies) Applied: none Estimated Blood Loss (mL): 2 Blood products transfused: none Procedure in detail: Transrectal Ultrasound of the Prostate with Needle Biopsy: 98370 Indication: 64 y/o M w/ an elevated PSA and a PIRADS 4 lesion on his prostate MRI. Following informed consent and general anesthesia, he was transitioned into the left lateral decubitus position. The ultrasound probe was then coated in lubrication and gently inserted into his rectum. A total of 10cc of 1% Lidocaine was used for local anesthetic throughout the procedure. Transrectal US images of his prostate were then performed and a volume of 48 cc was calculated. A total of 12 biopsies were taken from the prostate and submitted as six different pathologic specimens (right base, right mid, right apex, left base, left mid, left apex). An additional 3 biopsies were than taken from the aforementioned PIRADS 4 lesion and submitted as lesion 1. Hemostasis was evaluated at the end of the procedure and noted to be excellent. He tolerated the procedure well without any complications and the ultrasound probe was gently removed from his rectum. Complications: none Post-operative Condition: stable Disposition: PACU Plan for aftercare: Discharge home from PACU. Will be contacted to coordinate a follow-up appointment to discuss the results as soon as they return.
[2024-10-02] MEDS: LACTATED RINGERS 1,000 ML 100 ML IV (09:24)
--- NOTE | 2024-10-02 09:26 | SUR.PHASEII ---
Unable to void at present. 2nd bag of LR hung
== END 2024-10-02 10:00 | disposition home or self-care (01) ==
PROVIDERS: PCP Registered Nurse Diabetes Educator; Referring Provider Urology; Visit Provider Urology
PROC: 0VJ43ZZ Inspection of Prostate and Seminal Vesicles, Percutaneous Approach (ICD-10-PCS; CPT 55876; principal; 2024-10-02 07:45)
DX: R97.20 Elevated prostate specific antigen [PSA] (principal)
CPT/HCPCS: 55700; 76872; 76942; J1100; J2250; J2704; J2765; J3010

== ENCOUNTER 2024-10-31 11:54 | Emergency (ER) | payer OTHER, SELFPAY ==
[2024-10-31 12:05] VITALS: BP 129/87; PULSE 78; RESP 14; TEMP 37.1; O2SAT 98; BMI 30.5
[2024-10-31 12:11] VITALS: BP 170/100; PULSE 77; O2SAT 97
[2024-10-31 12:30] VITALS: BP 138/88; PULSE 71; O2SAT 98
[2024-10-31 12:41] LABS: Add Manual Diff / Slide Review NO; Hematocrit 44.5 % (41-53); Hemoglobin 15.3 g/dL (13.5-17.5); Lymphocytes Absolute Auto 1000 /uL (1100-4500); Mean Corpuscular HGB Conc 34.5 % (30-36); Mean Corpuscular Hemoglobin 35.6 PG (26-34); Mean Corpuscular Volume 103.2 fL (80-100); Platelet Count 146 X10^3/uL (150-400)
[2024-10-31 12:44] LABS: INR 0.8 (0.9-1.3); Prothrombin Time 9.4 SECONDS (9.4-12.5)
[2024-10-31 12:46] LABS: PTT Partial Thromboplastin Tim 29 SECONDS (25.1-36.5)
[2024-10-31 12:47] LABS: Alanine Aminotransferase 138 IU/L (<50); Albumin 4.4 g/dL (3.5-5.0); Albumin Globulin Ratio 1.3 (1.0-2.8); Alkaline Phosphatase 198 U/L (38-126); Blood Urea Nitrogen 6 mg/dL (9-20); Calcium 9.2 mg/dL (8.4-10.2); Carbon Dioxide 19 mmol/L (22-32); Chloride 99 mmol/L (98-107); Estimated Glomerular Filt Rate > 60 mL/min (>60); Globulin 3.5 g/dL (1.7-4.1); Glucose 98 mg/dL (70-99); HEMOLYSIS < 15 (0-50); Potassium 4.6 mmol/L (3.4-5.1); Sodium 132 mmol/L (137-145); Total Protein 7.9 g/dL (6.3-8.2)
[2024-10-31 13:00] VITALS: BP 126/84; PULSE 63; O2SAT 94
--- NOTE | 2024-10-31 13:11 | ED_ITS ---
HPI - Skin/Abscess/Foreign Bdy General Chief complaint: Skin/Abscess/Foreign Body Stated complaint: unexplained bruising Time Seen by Provider: 10/31/24 11:55 Source: patient Mode of arrival: Ambulatory Limitations: no limitations History of Present Illness HPI narrative: 64-year-old male fell 4 days ago but noticed that he has been increasing bruising easily all over. He is not on any anticoagulants or aspirin at this time. He noticed left lower leg bruising, left thigh, right leg, and now right buttocks. No nose bleed, gingival bleeding, spitting up blood, hematuria or rectal bleeding. No known history of family history of blood disorder. Other than what is stated 14 point review of system is negative. Related Data Home Medications ?Medication ?Instructions ?Recorded ?Confirmed cholecalciferol (vitamin D3) 125 125 mcg PO DAILY 02/1909/23/24 mcg (5,000 unit) capsule Previous Rx's ?Medication ?Instructions ?Recorded levothyroxine 175 mcg tablet 175 mcg PO DAILY #90 tabs 03/17/24 propranolol 80 mg capsule,24 80 mg PO DAILY #90 caps 0 03/17/24 hr,extended release venlafaxine 150 mg 150 mg PO QAM #30 caps 09/23 capsule,extended release 24 hr Allergies Allergy/AdvReac Type Severity Reaction Status Date / Time Proton Pump Inhibitors AdvReac Mild skin Verified 10/31/24 12:05 jim leonardo sleep Review of Systems Review of Systems ROS Unobtainable: All systems reviewed & are unremarkable except as noted in HPI and below Patient History Medical History Major depressive disorder, recurrent severe without psychotic features Essential tremor Unexplained weight loss Dyslipidemia Elevated LDL cholesterol level Prediabetes Chronic bilateral low back pain with bilateral sciatica DDD (degenerative disc disease), lumbar Colitis (~2018) 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) Colon polyps Collagenous colitis Peyronie disease Irritable bowel syndrome Hypothyroidism Family History Father Diabetes mellitus Hypertension Cancer Atrial fibrillation Grandfather Diabetes mellitus Mother Cancer Social History marital status: unmarried,single household members: significant other and family lives independently: Yes caregiver/support person: No housing: house education level: college 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 Well-developed patient, in mild distress. HEAD: Atraumatic. Normocephalic. EYES: Pupils equal round and reactive. Extraocular motions intact. No scleral icterus. No injection or drainage. ENT: Nose without bleeding, purulent drainage. Throat without erythema, tonsillar hypertrophy or exudate. Airway patent. NECK: Trachea midline. Non tender CARDIOVASCULAR: Regular rate and rhythm without murmurs, gallops, or rubs. RESPIRATORY: Clear to auscultation. Breath sounds equal bilaterally. No wheezes, rales, or rhonchi. GASTROINTESTINAL: Abdomen soft, non-tender, nondistended. EXTREMITIES: No edema or joint tenderness. BACK: Nontender without deformity or crepitance. No flank tenderness. NEURO: AOx3. SKIN: Left lower leg 4/5 entire leg hematoma, left thigh right thigh quarter- size hematoma, right buttocks cheek grapefruit size hematoma Initial Vital Signs Initial Vital Signs: Vital Signs Temperature 98.7 F 10/31/24 12:05 Pulse Rate 78 10/31/24 12:05 Respiratory Rate 14 10/31/24 12:05 Blood Pressure 129/87 10/31/24 12:05 Pulse Oximetry 98 10/31/24 12:05 Oxygen Delivery Method Room Air 10/31/24 12:05 Course Orders Ordered: ED Orders 10/31/24 12:23 CBC Auto Diff [Complete Blood Count AUTO DIFF] Stat CMP [Comprehensive Metabolic Panel] Stat PT [Prothrombin Time INR] Stat PTT [PTT Partial Thromboplastin [place]] Stat Vital Signs Vital signs: Vital Signs - 8 hr 10/31/24 12:05 Temperature 98.7 F Pulse Rate 78 Respiratory Rate 14 Blood Pressure 129/87 Pulse Oximetry 98 Oxygen Delivery Method Room Air MDM - Skin/Abscess/Foreign Bdy Lab Data 10/31/24 12:23 10/31/24 12:23 Labs: Lab Results 10/31/24 Range/Units 12:23 WBC 4.8 (4.5-11.0) X10^3/uL RBC 4.31 L (4.5-5.9) X10^6/uL Hgb 15.3 (13.5-17.5) g/dL Hct 44.5 (41-53) % MCV 103.2 H (80-100) fL MCH 35.6 H (26-34) PG MCHC 34.5 (30-36) % RDW 14.2 (11.6-14.8) % Plt Count 146 L (150-400) X10^3/uL Neut % (Auto) 60.8 (50-75) % Lymph % (Auto) 21.6 L (25-40) % [place] % (Auto) 15.5 H (3-14) % Eos % (Auto) 0.6 L (2-4) % Baso % (Auto) 1.5 (0-2) % Neut # (Auto) 2900 (8233-6117) /uL Lymph # (Auto) 1000 L (1570-9872) /uL [place] # (Auto) 700 (0-900) /uL Eos # (Auto) 0 (0-450) /uL Baso # (Auto) 100 (0-100) /uL PT 9.4 (9.4-12.5) SECONDS INR 0.8 L (0.9-1.3) APTT 29 (25.1-36.5) SECONDS Sodium 132 L (137-145) mmol/L Potassium 4.6 (3.4-5.1) mmol/L Chloride 99 (98-107) mmol/L Carbon Dioxide 19 L (22-32) mmol/L BUN 6 L (9-20) mg/dL Creatinine 1.06 (0.66-1.25) mg/dL Estimated GFR > 60 (>60) mL/min BUN/Creatinine Ratio 5.7 L (6-22) Glucose 98 (70-99) mg/dL Calcium 9.2 (8.4-10.2) mg/dL Total Bilirubin 0.9 (0.2-1.3) mg/dL AST 282 H (17-59) IU/L ALT 138 H (<50) IU/L Alkaline Phosphatase 198 H (38-126) U/L Total Protein 7.9 (6.3-8.2) g/dL Albumin 4.4 (3.5-5.0) g/dL Globulin 3.5 (1.7-4.1) g/dL Albumin/Globulin Ratio 1.3 (1.0-2.8) MDM Narrative Medical decision making narrative: Vital signs, nurse triage note, medication list, previous ER visits, and all imaging studies reviewed. WBC 4.8 hemoglobin 15.3 platelet 146 INR 0.8 sodium 132 AST 282 ALT 138 alk-phos 198. He does drink socially. Differential diagnosis ITP, fall contusion hematoma. Patient will follow up PCP this week for repeat blood work and to monitor for any further bruising. Discharge Plan Departure Patient Disposition: Home Clinical Impression: Acute idiopathic thrombocytopenic purpura Instructions: DI for Immune Thrombocytopenic Purpura Activity Restrictions/Additional Instructions: Return with new or worsening symptoms. Follow up PCP this week for repeat blood work. Avoid aspirin naproxen Aleve ibuprofen. Prescriptions: No Action venlafaxine 150 mg capsule,extended release 24hr 150 mg PO QAM Qty: 30 2RF cholecalciferol (vitamin D3) 125 mcg (5,000 unit) capsule 125 mcg PO DAILY levothyroxine 175 mcg tablet 175 mcg PO DAILY Qty: 90 3RF propranolol 80 mg capsule,extended release 24hr 80 mg PO DAILY Qty: 90 3RF Referrals: Ambrosio Washington ARNP [Primary Care Provider, Medical] Stand Alone Forms: Patient Portal/API
[2024-10-31 13:30] VITALS: BP 131/81; PULSE 72; O2SAT 97
== END 2024-10-31 13:55 | disposition home or self-care (01) ==
PROVIDERS: Emergency Provider Family Medicine; PCP Registered Nurse Diabetes Educator
DX: D69.3 Immune thrombocytopenic purpura (principal)
CPT/HCPCS: 80053; 85025; 85610; 85730; 99281; 99283

== ENCOUNTER → 2024-11-03 13:52 | Outpatient (CLI) | payer OTHER, SELFPAY ==
[2024-11-03 14:29] LABS: Add Manual Diff / Slide Review NO; Hematocrit 43.9 % (41-53); Hemoglobin 15.3 g/dL (13.5-17.5); Lymphocytes Absolute Auto 1100 /uL (1100-4500); Mean Corpuscular HGB Conc 34.9 % (30-36); Mean Corpuscular Hemoglobin 35.6 PG (26-34); Mean Corpuscular Volume 102.0 fL (80-100); Platelet Count 161 X10^3/uL (150-400)
[2024-11-03 15:01] LABS: Alanine Aminotransferase 151 IU/L (<50); Albumin 4.4 g/dL (3.5-5.0); Albumin Globulin Ratio 1.3 (1.0-2.8); Alkaline Phosphatase 208 U/L (38-126); Blood Urea Nitrogen 6 mg/dL (9-20); Calcium 9.3 mg/dL (8.4-10.2); Carbon Dioxide 22 mmol/L (22-32); Chloride 100 mmol/L (98-107); Estimated Glomerular Filt Rate > 60 mL/min (>60); Globulin 3.3 g/dL (1.7-4.1); Glucose 99 mg/dL (70-99); HEMOLYSIS < 15 (0-50); Potassium 4.7 mmol/L (3.4-5.1); Sodium 135 mmol/L (137-145); Total Protein 7.7 g/dL (6.3-8.2)
[2024-11-03 15:29] LABS: TSH w/ Reflex to FT4 < 0.02 uIU/mL (0.47-4.68)
[2024-11-03 15:32] LABS: Ferritin 634 ng/mL (18-464)
[2024-11-03 15:34] LABS: INR 0.8 (0.9-1.3); Prothrombin Time 9.1 SECONDS (9.4-12.5)
[2024-11-03 15:37] LABS: PTT Partial Thromboplastin Tim 28 SECONDS (25.1-36.5)
[2024-11-03 16:05] LABS: Folate 19.4 ng/mL (2.76-20.0); Vitamin B12 654 pg/mL (239-931)
[2024-11-03 16:24] LABS: HIV 1 & 2 Ab/Ag 4th Gen Combo NEGATIVE (NEGATIVE); Hep C Virus Ab w/Reflex Quant NEGATIVE s/c (NEGATIVE)
[2024-11-03 16:49] LABS: Free T4, Direct Thyroxine 2.01 ng/dL (0.78-2.19)
== END ==
PROVIDERS: PCP Registered Nurse Diabetes Educator; Referring Provider Registered Nurse Diabetes Educator; Visit Provider Registered Nurse Diabetes Educator
DX: D69.3 Immune thrombocytopenic purpura (principal); D53.9 Nutritional anemia, unspecified; R74.8 Abnormal levels of other serum enzymes; F10.90 Alcohol use, unspecified, uncomplicated; E03.9 Hypothyroidism, unspecified
CPT/HCPCS: 36415; 80053; 82607; 82728; 82746; 84439; 84443; 85025; 85610; 85651; 85730; 86140; 86803; 87389

== ENCOUNTER 2024-11-05 14:41 | Emergency (ER) | payer OTHER, SELFPAY ==
[2024-11-05] VITALS (8 sets, daily range): BP systolic 143–184; BP diastolic 86–109; PULSE 69–91; RESP 15–21; TEMP 36.4; O2SAT 97–100; BMI 30.5
--- NOTE | 2024-11-05 15:02 | DI.RAD.S_ITS ---
PROCEDURE: XR CHEST 1V INDICATIONS: altered mental status TECHNIQUE: One view of the chest was acquired. COMPARISON: None. FINDINGS: Surgical changes and devices: None. Lungs and pleura: Lungs are clear. No pleural effusions or pneumothorax. Mediastinum: Mediastinal contours appear normal. Heart size is normal. Bones and chest wall: No suspicious bony lesions. Overlying soft tissues appear unremarkable. IMPRESSION: No acute cardiopulmonary abnormality is seen. Dictated by: Hi Madden M.D. on 11/05/2024 at 15:31 Approved by: Hi Madden M.D. on 11/05/2024 at 15:34
--- NOTE | 2024-11-05 15:02 | EKG_ITS ---
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
--- NOTE | 2024-11-05 15:06 | DI.CT.S_ITS ---
PROCEDURE: CT ABDOMEN PELVIS W CON INDICATIONS: abd pain TECHNIQUE: After the administration of intravenous contrast, axial sections acquired from the lung bases to the pubic symphysis. Coronal and sagittal reformats were performed. For radiation dose reduction, the following was used: automated exposure control, adjustment of mA and/or kV according to patient size. COMPARISON: None. FINDINGS: Image quality: Diagnostic. Lower Chest: No significant findings. ABDOMEN: Liver: Hepatic steatosis. Areas of focal fatty sparing in the left lobe. Gallbladder: No radiopaque gallstones or wall thickening. Biliary ducts: No biliary dilation. Pancreas: No ductal dilation. Spleen: Size is within normal limits. Adrenal Glands: No adrenal nodules. Kidneys and Ureters: No hydronephrosis. No solid mass. No complex renal cystic lesion which requires follow up. Stomach and Bowel: Normal colonic caliber, without significant wall thickening. Normal appendix. Peritoneum: No abnormal intraperitoneal fluid. No free air. Ventral Wall: No significant ventral hernia. Left lumbar hernia. Abdominal Nodes: No retroperitoneal or mesenteric adenopathy by size criteria. Vessels: Aorta and inferior vena cava are normal in size. PELVIS: Pelvic Organs: Prostatomegaly. Bladder: No bladder wall thickening, accounting for underdistention. No stone. Pelvic Nodes: No enlarged lymph nodes. Miscellaneous: No inguinal hernias are seen. Vas deferens calcifications. Bones: No aggressive osseous abnormality. IMPRESSION: 1. No acute abnormality. No free fluid. Normal appendix. 2. Hepatic steatosis. Dictated by: Hi Madden M.D. on 11/05/2024 at 15:34 Approved by: Hi Madden M.D. on 11/05/2024 at 15:42
[2024-11-05] MEDS: LACTATED RINGERS 1,000 ML 1000 ML IV ×2 (15:22→16:05)
[2024-11-05 15:24] LABS: Add Manual Diff / Slide Review NO; Hematocrit 45.4 % (41-53); Hemoglobin 15.7 g/dL (13.5-17.5); Lymphocytes Absolute Auto 600 /uL (1100-4500); Mean Corpuscular HGB Conc 34.5 % (30-36); Mean Corpuscular Hemoglobin 35.6 PG (26-34); Mean Corpuscular Volume 103.2 fL (80-100); Platelet Count 154 X10^3/uL (150-400)
--- NOTE | 2024-11-05 15:30 | ED_ITS ---
HPI - Abdominal Pain General Chief Complaint: Toxicology Problem Stated Complaint: Liver issues, alcohol withdrawals Time Seen by Provider: 11/05/24 15:05 History of Present Illness HPI narrative: 64-year-old gentleman history of chronic essential tremor right-sided, alcohol use abuse, depression, recent dx of ITP seen by PCP yesterday presents with shaking presents with shaking nausea diaphoresis chronic elevation of LFTs secondary to alcohol use abuse presents today with just generally unwell. Patient denies chest pain, shortness of breath, fever, chills, bodyaches, sore throat, hematuria, penile discharge, testicular pain, urinary complaints. Other than what is stated 14 pt ROS is negative. Related Data Home Medications ?Medication ?Instructions ?Recorded ?Confirmed cholecalciferol (vitamin D3) 125 125 mcg PO DAILY 02/1911/04/24 mcg (5,000 unit) capsule Previous Rx's ?Medication ?Instructions ?Recorded propranolol 80 mg capsule,24 80 mg PO DAILY #90 caps 0 03/17/24 hr,extended release venlafaxine 37.5 mg See Rx Instructions .Route 0 11/02/24 capsule,extended release 24 hr .COMPLEX #45 caps (Effexor XR) escitalopram oxalate 10 mg tablet See Rx Instructions .Route 11/04/24 (Lexapro) .COMPLEX #60 tabs levothyroxine 150 mcg tablet 150 mcg PO DAILY #60 tabs 11/04/24 gabapentin 300 mg capsule 300 mg PO TID #30 caps 11/05 ondansetron 4 mg disintegrating 4 mg PO Q8H PRN nausea and 11/05/24 tablet vomiting #30 tabs Allergies Allergy/AdvReac Type Severity Reaction Status Date / Time Proton Pump Inhibitors AdvReac Mild skin Verified 11/04/24 15:16 jim leonardo sleep Review of Systems Review of Systems ROS Unobtainable: All systems reviewed & are unremarkable except as noted in HPI and below Patient History Medical History Major depressive disorder, recurrent severe without psychotic features Essential tremor Unexplained weight loss Dyslipidemia Elevated LDL cholesterol level Prediabetes Chronic bilateral low back pain with bilateral sciatica DDD (degenerative disc disease), lumbar Colitis (~2018) 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) Colon polyps Collagenous colitis Peyronie disease Irritable bowel syndrome Hypothyroidism Family History Father Diabetes mellitus Hypertension Cancer Atrial fibrillation Grandfather Diabetes mellitus Mother Cancer Social History marital status: unmarried,single household members: significant other and family lives independently: Yes caregiver/support person: No housing: house education level: college 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 Well-developed patient, in mild distress. HEAD: Atraumatic. Normocephalic. EYES: Pupils equal round and reactive. Extraocular motions intact. No scleral icterus. No injection or drainage. ENT: Nose without bleeding, purulent drainage. Throat without erythema, tonsillar hypertrophy or exudate. Airway patent. NECK: Trachea midline. Non tender CARDIOVASCULAR: Regular rate and rhythm without murmurs, gallops, or rubs. RESPIRATORY: Clear to auscultation. Breath sounds equal bilaterally. No wheezes, rales, or rhonchi. GASTROINTESTINAL: Abdomen soft, non-tender, nondistended. EXTREMITIES: No edema or joint tenderness. BACK: Nontender without deformity or crepitance. No flank tenderness. NEURO: AOx3. SKIN: No rash or erythema of visible areas. Left lower leg hematoma unchanged from previously seen ER visits by me Initial Vital Signs Initial Vital Signs: Vital Signs Temperature 97.5 F L 11/05/24 14:48 Pulse Rate 91 H 11/05/24 14:48 Respiratory Rate 16 11/05/24 14:48 Blood Pressure 184/108 H 11/05/24 14:48 Pulse Oximetry 98 11/05/24 14:48 Oxygen Delivery Method Room Air 11/05/24 14:48 Course Orders Ordered: ED Orders 11/05/24 15:02 XR chest 1V Stat Urine Drug Screen, Rapid Stat EKG-12 Lead Stat 11/05/24 15:06 CT abdomen pelvis w con Stat 11/05/24 15:13 Ammonia (NH3) Stat Complete Blood Count AUTO DIFF Stat Comprehensive Metabolic Panel Stat Ethanol (ETOH) Stat Lactate (Lactic Acid) Stat Procalcitonin Stat Troponin & CK Cardiac Panel Stat Lactated Ringer's (Lactated Ringers) 1,000 mls @ 1,000 mls/hr IV BOLUS ONE Stop: 11/05/24 16:05 Last Admin: 11/05/24 15:22 Dose: 1,000 mls/hr Documented By: RHETT Vital Signs Vital signs: Vital Signs - 8 hr 11/05/24 14:48 11/05/24 15:05 11/05/24 15:06 Temperature 97.5 F L Pulse Rate 91 H 74 Respiratory Rate 16 16 Blood Pressure 184/108 H 166/109 H Pulse Oximetry 98 100 Oxygen Delivery Method Room Air 11/05/24 15:06 Temperature Pulse Rate 85 Respiratory Rate 21 Blood Pressure Pulse Oximetry 98 Oxygen Delivery Method MDM - Abdominal Pain Lab Data 11/05/24 15:13 11/05/24 15:13 Labs: Lab Results 11/05/24 Range/Units 15:13 WBC 5.4 (4.5-11.0) X10^3/uL RBC 4.40 L (4.5-5.9) X10^6/uL Hgb 15.7 (13.5-17.5) g/dL Hct 45.4 (41-53) % MCV 103.2 H (80-100) fL MCH 35.6 H (26-34) PG MCHC 34.5 (30-36) % RDW 14.1 (11.6-14.8) % Plt Count 154 (150-400) X10^3/uL Neut % (Auto) 75.3 H (50-75) % Lymph % (Auto) 11.7 L (25-40) % Christian % (Auto) 12.0 (3-14) % Eos % (Auto) 0.0 L (2-4) % Baso % (Auto) 1.0 (0-2) % Neut # (Auto) 4000 (4828-8924) /uL Lymph # (Auto) 600 L (8922-5720) /uL Christian # (Auto) 600 (0-900) /uL Eos # (Auto) 0 (0-450) /uL Baso # (Auto) 100 (0-100) /uL Imaging Data CT scan - abdomen/pelvis: Radiologist's Impression: [address] [address] [address] Scan Report Signed Patient: Lm Spaulding V MR#: [id number] : 1960 Acct:[id number] Age/Sex: 64 / M Date of Service: 11/05/24 Loc: ED Accession Number: [id number] Procedure: CT abdomen pelvis w con Ordering Provider: Chong Cam D.O. PROCEDURE: CT ABDOMEN PELVIS W CON INDICATIONS: abd pain TECHNIQUE: After the administration of intravenous contrast, axial sections acquired from the lung bases to the pubic symphysis. Coronal and sagittal reformats were performed. For radiation dose reduction, the following was used: automated exposure control, adjustment of mA and/or kV according to patient size. COMPARISON: None. FINDINGS: Image quality: Diagnostic. Lower Chest: No significant findings. ABDOMEN: Liver: Hepatic steatosis. Areas of focal fatty sparing in the left lobe. Gallbladder: No radiopaque gallstones or wall thickening. Biliary ducts: No biliary dilation. Pancreas: No ductal dilation. Spleen: Size is within normal limits. Adrenal Glands: No adrenal nodules. Kidneys and Ureters: No hydronephrosis. No solid mass. No complex renal cystic lesion which requires follow up. Stomach and Bowel: Normal colonic caliber, without significant wall thickening. Normal appendix. Peritoneum: No abnormal intraperitoneal fluid. No free air. Ventral Wall: No significant ventral hernia. Left lumbar hernia. Abdominal Nodes: No retroperitoneal or mesenteric adenopathy by size criteria. Vessels: Aorta and inferior vena cava are normal in size. PELVIS: Pelvic Organs: Prostatomegaly. Bladder: No bladder wall thickening, accounting for underdistention. No stone. Pelvic Nodes: No enlarged lymph nodes. Miscellaneous: No inguinal hernias are seen. Vas deferens calcifications. Bones: No aggressive osseous abnormality. IMPRESSION: 1. No acute abnormality. No free fluid. Normal appendix. 2. Hepatic steatosis. ECG Data Interpretation: NSR HR 74 WI 144 QRS [address]-t wave change NO previous EKG to compare MDM Narrative Medical decision making narrative: All lab work, vital signs, nurse triage note, medication list, previous ER visits, all imaging studies reviewed. CT abdomen and pelvis showed hepatic steatosis no acute abnormality no free fluid normal appendix. Normal white count hemoglobin 15.7 platelet 154 sodium 136 CO2 21 glucose 143 lactic acid 2.5 T bili 1.7 AST 258 ALT 157 alk-phos 250 ammonia less than 9 troponin normal lipase 75 procalcitonin 0.162 positive for marijuana. Patient given lactated ringer 1 L bolus x2 droperidol and Benadryl here. Patient will be discharged on naloxone, gabapentin and zofran and to follow up with pcp next week for recheck. Discharge Plan Departure Patient Disposition: Home Clinical Impression: Alcohol abuse, Hepatic steatosis Instructions: DI for Alcohol Use Disorder Activity Restrictions/Additional Instructions: Return with new or worsening symptoms. Take your medicines directed. Follow up with PCP next week for recheck of liver enzymes. Prescriptions: New gabapentin 300 mg capsule 300 mg PO TID Qty: 30 0RF ondansetron 4 mg tablet,disintegrating 4 mg PO Q8H PRN (Reason: nausea and vomiting) Qty: 30 0RF No Action venlafaxine [Effexor XR] 37.5 mg capsule,extended release 24hr See Rx Instructions .ROUTE .COMPLEX Qty: 45 0RF Rx Instructions: To taper off: Take 3 caps by mouth daily x 1 week, then take 2 caps daily x 1 week, then take 1 cap daily x 1 week then stop escitalopram oxalate [Lexapro] 10 mg tablet See Rx Instructions .ROUTE .COMPLEX Qty: 60 2RF Rx Instructions: Week 1: Take 0.5 tab by mouth daily. Week 2: Take 1 tab daily. Week 3: Take 1.5 tabs by mouth daily. Week 4 and thereafter: Take 2 tabs daily. levothyroxine 150 mcg tablet 150 mcg PO DAILY Qty: 60 0RF Rx Instructions: Recheck thyroid test in 4 weeks cholecalciferol (vitamin D3) 125 mcg (5,000 unit) capsule 125 mcg PO DAILY propranolol 80 mg capsule,extended release 24hr 80 mg PO DAILY Qty: 90 3RF Referrals: Ambrosio Washington ARNP [Primary Care Provider, Medical] Stand Alone Forms: Patient Portal/API
[2024-11-05 15:34] LABS: Lactate (Lactic Acid) 2.5 mmol/L (0.7-2.1)
[2024-11-05 15:35] LABS: Ammonia (NH3) < 9 umol/L (9-30)
[2024-11-05 15:36] LABS: Alanine Aminotransferase 157 IU/L (<50); Albumin 4.8 g/dL (3.5-5.0); Albumin Globulin Ratio 1.3 (1.0-2.8); Alkaline Phosphatase 250 U/L (38-126); Blood Urea Nitrogen 11 mg/dL (9-20); Calcium 10.2 mg/dL (8.4-10.2); Carbon Dioxide 21 mmol/L (22-32); Chloride 101 mmol/L (98-107); Creatine Kinase 139 U/L (55-170); Estimated Glomerular Filt Rate > 60 mL/min (>60); Ethanol (ETOH) < 10 mg/dL (<10); Globulin 3.7 g/dL (1.7-4.1); Glucose 143 mg/dL (70-99); HEMOLYSIS 15 (0-50); Potassium 4.5 mmol/L (3.4-5.1); Sodium 136 mmol/L (137-145); Total Protein 8.5 g/dL (6.3-8.2)
[2024-11-05 15:48] LABS: Troponin I < 0.012 ng/mL (0.01-0.034)
[2024-11-05 15:52] LABS: Procalcitonin 0.162 ng/mL (<0.5)
[2024-11-05 16:01] LABS: Lipase 75 U/L (23-300)
[2024-11-05] MEDS: diphenhydrAMINE 50 MG/ML VIAL IV (16:05)
[2024-11-05] MEDS: droPERidol 2.5 MG/ML VIAL IV (16:05)
[2024-11-05 16:31] LABS: UR Morphine/Opiate cutoff 300 Negative (Negative); Ur Specific Gravity Normal (Normal); Urine MDMA Negative (Negative); Urine Methamphetamines Negative (Negative); Urine Tetrahydrocannabinol Positive (Negative); Urine Tricyclic Antidepressant Negative (Negative)
[2024-11-05 16:54] LABS: Reflexed Lactate in 2 Hours Y
[2024-11-05] MEDS: NALOXONE 4 MG NASAL SPRAY MISC (17:12)
[2024-11-05 17:24] LABS: Lactate 2HR (Lactic Acid Rflx) 1.2 mmol/L (0.7-2.1)
== END 2024-11-05 17:18 | disposition home or self-care (01) ==
PROVIDERS: Emergency Provider Family Medicine; PCP Registered Nurse Diabetes Educator
DX: F10.10 Alcohol abuse, uncomplicated (principal); K76.0 Fatty (change of) liver, not elsewhere classified
CPT/HCPCS: 36415; 71045; 74177; 80053; 80305; 80320; 81003; 81015; 82140; 82550; 83605; 83690; 84145; 84484; 85025; 93005; 96361; 96374; 96375; 99284; A9270; J1200; J1790

== ENCOUNTER → 2024-12-22 07:33 | Outpatient (CLI) | payer OTHER, SELFPAY ==
[2024-12-22 08:29] LABS: Add Manual Diff / Slide Review NO; Hematocrit 37.3 % (41-53); Hemoglobin 12.8 g/dL (13.5-17.5); Lymphocytes Absolute Auto 1400 /uL (1100-4500); Mean Corpuscular HGB Conc 34.3 % (30-36); Mean Corpuscular Hemoglobin 34.5 PG (26-34); Mean Corpuscular Volume 100.7 fL (80-100); Platelet Count 277 X10^3/uL (150-400)
[2024-12-22 09:01] LABS: Alanine Aminotransferase 18 IU/L (<50); Albumin 3.6 g/dL (3.5-5.0); Albumin Globulin Ratio 1.3 (1.0-2.8); Alkaline Phosphatase 66 U/L (38-126); Blood Urea Nitrogen 13 mg/dL (9-20); Calcium 8.8 mg/dL (8.4-10.2); Carbon Dioxide 22 mmol/L (22-32); Chloride 104 mmol/L (98-107); Estimated Glomerular Filt Rate > 60 mL/min (>60); Globulin 2.8 g/dL (1.7-4.1); Glucose 103 mg/dL (70-99); HEMOLYSIS < 15 (0-50); Potassium 4.4 mmol/L (3.4-5.1); Sodium 134 mmol/L (137-145); Total Protein 6.4 g/dL (6.3-8.2)
[2024-12-22 09:30] LABS: TSH w/ Reflex to FT4 0.96 uIU/mL (0.47-4.68)
[2024-12-23 05:10] LABS: Alpha 1 Anti Trypsin 155 mg/dL (101-187); Immunoglobulin G, Quantitative 913 mg/dL (603-1613)
== END ==
PROVIDERS: PCP Registered Nurse Diabetes Educator; Referring Provider Registered Nurse Diabetes Educator; Visit Provider Registered Nurse Diabetes Educator
DX: K70.9 Alcoholic liver disease, unspecified (principal); K76.0 Fatty (change of) liver, not elsewhere classified; D69.3 Immune thrombocytopenic purpura; R74.8 Abnormal levels of other serum enzymes; R79.89 Other specified abnormal findings of blood chemistry; F10.90 Alcohol use, unspecified, uncomplicated; E03.9 Hypothyroidism, unspecified
CPT/HCPCS: 80053; 80076; 82103; 82390; 82784; 84443; 85025; 86015; 86038; 86376

== ENCOUNTER 2025-01-19 13:10 | Inpatient (IN) | payer OTHER, SELFPAY ==
[2025-01-19] VITALS (15 sets, daily range): BP systolic 107–172; BP diastolic 67–107; PULSE 65–77; RESP 12–20; TEMP 36.3–36.6; O2SAT 93–99; BMI 33.9
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
[2025-01-19] MEDS: ONDANSETRON 4 MG/2 ML INJ IV (13:42)
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
--- NOTE | 2025-01-19 14:27 | PC.NURSE ---
IV placed by another RN
--- NOTE | 2025-01-19 15:51 | PC.NURSE ---
Kailey from PT at bedside to evaluate patient.
--- NOTE | 2025-01-19 15:55 | PC.NURSE ---
Patient attempted to get up with PT, unable to get further than edge of bed. Began hyperventilating, sweaty and states I think I am having a panic attack, I need something for anxiety Dr Shea informed of patient's request and change in mentation
--- NOTE | 2025-01-19 16:20 | PT.IIE ---
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) Irritable bowel syndrome Major depressive disorder, recurrent severe without psychotic features Peyronie disease Prediabetes Unexplained weight loss Physical Therapy Inpatient Evaluation/Re-Eval M1 PT IP Prior Functional Status Start: 01/19/25 16:04 Freq: Status: Active Protocol: Document 01/19/25 16:04 SAK (Rec: 01/19/25 16:20 [facility] [id number]) Medical Review Prior Functional Status Medical History Yes Reviewed Diet/Fluid Regular Consistency Communication no deficits Mobility and Gait indep Activities of Daily indep Living and IADL's Prior Functional indep Level (Other details ) Social History Household Members significant other,family Living Arrangements Apartment/Condo Number of Stairs To 20, railing Enter/Railing? Home Environment Standard Height Toilet,Tub/Shower Employment Status Retired M2 PT-IP Current Condition Start: 01/19/25 16:04 Freq: Status: Active Protocol: Document 01/19/25 16:04 SAK (Rec: 01/19/25 16:20 [facility] [id number]) Physical Therapy Current Condition Current Condition Evaluation Date 01/19/25 Treatment Diagnosis pelvic fracture Onset Date 01/19/25 M3 PT-IP Subjective Start: 01/19/25 16:04 Freq: Status: Active Protocol: Document 01/19/25 16:04 SAK (Rec: 01/19/25 16:20 [facility] [id number]) Subjective Physical Therapy Visit Type Type Initial Evaluation Visit Start Time 15:32 Visit Stop Time 16:07 Therapy Pain Assessment Pain When Pain Assessed At Rest Pain Present Pain Present Pain Reported Location right hip Intensity 8 Scale Used Numeric (0 - 10) Pain Management Apply Cold,Distraction,Timing of Activity with Techniques Medications M4 PT-IP Mobility and Gait Start: 01/19/25 16:04 Freq: Status: Active Protocol: Document 01/19/25 16:04 SAK (Rec: 01/19/25 16:20 [facility]AK [id number]) PT-Bed Mobility Assessment Supine to Sit Supine to Sit Moderate Assistance Sit to Supine Sit to Supine Moderate Assistance PT-Transfer Assessment Comments Mobility Comments unable to move fully to edge of bed. Unable to stand or walk at this time. Gait Assessment Comments Gait Comments unable Stair Climbing Assessment Comments Stair Climbing not able to be tested at this time Comments PT-Balance Assessment Sitting Balance and Reactions Static Sitting Fair Balance Ability Dynamic Sitting Fair Balance Ability M5 PT-IP Objective Assessments Start: 01/19/25 16:04 Freq: Status: Active Protocol: Document 01/19/25 16:04 [facility] (Rec: 01/19/25 16:20 [facility] [id number]) Orientation Orientation/Cognition Level of Alertness Alert Orientation Name,Age,Situation Language Function No Deficits Noted Ability Safety Awareness Understands Safety Issues Memory Description No Deficits Noted Gross Range of Motion Upper Extremity ROM Assessment Within Functional Limits Lower Extremity ROM Assessment Within Functional Limits Strength Upper Extremity Strength Assessment Within Functional Limits Lower Extremity Strength Assessment Right Impaired Sensation Assessment Sensation Gross Sensation Right LE Impaired Sensation Paresthesia,Numbness Description Muscle Tone Muscle Tone WNL Yes M6 PT-IP Treatment Start: 01/19/25 16:04 Freq: Status: Active Protocol: Document 01/19/25 16:04 [facility] (Rec: 01/19/25 16:20 [facility] [id number]) Physical Therapy Treatment Education Education Provided Safety M7 PT-IP Assessment and Plan Start: 01/19/25 16:04 Freq: Status: Active Protocol: Document 01/19/25 16:04 [facility] (Rec: 01/19/25 16:20 [facility] [id number]) PT Summary Assessment and Plan Potential Rehabilitation Good Potential Status of Condition Evolving at Evaluation Summary Impairments Pain,Strength,Bed Mobility,Transfers,Gait,Activity Tolerance Assessment Summary Patient seen in ER for PT evaluation. Patient reporting high pain 8-9/10 level right LE, denied tingling but reported mild numbness right LE. UE's 5/5 with MMT. Able to move at ankles without difficulty. Left LE grossly normal strength. He expressed high pain level in right hip/pelvis despite medication, was diaphoretic, required mod assist to move from supine to sit. Requested blue bag due to nausea once sitting. C/o pain too high, too anxious to continue, assisted back to supine with mod assist for right LE. Obtained ice pack for R LE. Patient unable to stand or walk. Has 20 stairs to enter his home. At this time he is not physically able or safe to go home due to high pain level, anxiety, limited activity tolerance. . Informed physician and IT AUDITOR. Goals Bed Mobility Goal Independent Transfer Goal Independent Gait Goal Independent Gait Distance 150 Days to Meet Goals 7 Frequency of Treatment Frequency Of Once a Day Treatment Treatment Plan Physical Therapy Gait Training,Therapeutic Exercise,Discharge Planning Treatment Plan Weight Bearing Status Weight Bearing Weight Bear as Tolerated Status Recommendations To Nursing Amount of Assist 2 Person Assist Needed Discharge Recommendations PT Discharge Home with Assistance,Acute Rehab,Home vs SNF,SNF vs Recommendations Acute Rehab Equipment Needed for walker Home Before Discharge Transportation Needs Wheelchair/Cabulance at Discharge
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
[2025-01-19] MEDS: KETOROLAC 30 MG/ML VIAL 15 MG IV (17:03)
[2025-01-19] MEDS: SODIUM CHLORIDE 0.9% 1,000 ML 100 ML IV (17:05)
--- NOTE | 2025-01-19 17:11 | PC.NURSE ---
Patient states he has essential tremors and anxiety but states he has increase in shakiness for his baseline. He is sweating and states that he would have had a drink by now if he were home. His CIWA score is 12 after having 1mg PO ativan. Patient given po librium and 130mg phenobarbitol. Patient is resting in bed now. at bedside.
--- NOTE | 2025-01-19 17:14 | PC.NURSE ---
pt has not had a seizure of hx of.
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
[2025-01-19] MEDS: ACETAMINOPHEN 325 MG TABLET 650 MG PO (21:19)
[2025-01-20] VITALS (7 sets, daily range): BP systolic 120–136; BP diastolic 71–90; PULSE 65–77; RESP 16–18; TEMP 36.1–37.1; O2SAT 74–100
[2025-01-20 04:29] LABS: Appearance Urine UA CLEAR; Bilirubin Urine UA 1+ (NEGATIVE); Color Urine UA YELLOW; Glucose Urine UA NEGATIVE (Negative); Ketones Urine UA TRACE (NEGATIVE); Leukocyte Esterase Urine UA NEGATIVE (NEGATIVE); Nitrite Urine UA NEGATIVE (Negative); Occult Blood Urine UA NEGATIVE (Negative); Protein Urine UA TRACE (Negative); Specific Gravity Urine UA >=1.030 (1.000-1.035); Urobilinogen Urine UA 1.0 E.U./dL (0.2); pH Urine UA 6.0 (4.5-8.0)
[2025-01-20 04:37] LABS: Culture Indicated Urine Cult Not Indicated; Ictotest Urine Negative (Negative); UR Morphine/Opiate cutoff 300 Negative (Negative); Urine MDMA Negative (Negative); Urine Methamphetamines Negative (Negative); Urine Tetrahydrocannabinol Positive (Negative); Urine Tricyclic Antidepressant Negative (Negative)
[2025-01-20 04:44] LABS: Add Manual Diff / Slide Review NO; Hematocrit 36.1 % (41-53); Hemoglobin 12.1 g/dL (13.5-17.5); Lymphocytes Absolute Auto 900 /uL (1100-4500); Mean Corpuscular HGB Conc 33.6 % (30-36); Mean Corpuscular Hemoglobin 33.6 PG (26-34); Mean Corpuscular Volume 100.0 fL (80-100); Platelet Count 128 X10^3/uL (150-400)
[2025-01-20 04:57] LABS: Alanine Aminotransferase 37 IU/L (<50); Albumin 3.6 g/dL (3.5-5.0); Albumin Globulin Ratio 1.2 (1.0-2.8); Alkaline Phosphatase 75 U/L (38-126); Blood Urea Nitrogen 15 mg/dL (9-20); Calcium 8.3 mg/dL (8.4-10.2); Carbon Dioxide 26 mmol/L (22-32); Chloride 104 mmol/L (98-107); Estimated Glomerular Filt Rate > 60 mL/min (>60); Globulin 2.9 g/dL (1.7-4.1); Glucose 112 mg/dL (70-99); HEMOLYSIS < 15 (0-50); Potassium 3.7 mmol/L (3.4-5.1); Sodium 136 mmol/L (137-145); Total Protein 6.5 g/dL (6.3-8.2)
--- NOTE | 2025-01-20 08:29 | PT.IPTN ---
Physical Therapy Treatment Note M2 PT-IP Current Condition Start: 01/19/25 16:04 Freq: Status: Active Protocol: Document 01/20/25 08:45 SP (Rec: 01/20/25 09:05 SP Laptop) Physical Therapy Current Condition Current Condition Evaluation Date 01/19/25 Treatment Diagnosis pelvic fracture Onset Date 01/19/25 M3 PT-IP Subjective Start: 01/19/25 16:04 Freq: Status: Active Protocol: Document 01/20/25 08:45 SP (Rec: 01/20/25 09:05 SP Laptop) Subjective Physical Therapy Visit Type Type Treatment Note Visit Start Time 08:06 Visit Stop Time 08:29 Number of [employer] Visits 1 Physical Therapy Visit Comments Patient Comments Pt agreeable to working with [employer]. Patient Goals agreeable to going to SNF due to pain and lack strength with mobility. Therapy Pain Assessment Pain When Pain Assessed At Rest Pain Present Pain Present Pain Reported Location right hip Intensity 5 Scale Used 5/10 resting, 6/10 with standing mobility Description Acute,With Movement Pain Behaviors Facial Grimacing,Guarding,Holding Area,Restlessness Pain Management Distraction,Elevation,Modification of Treatment,Re- Techniques positioning,Timing of Activity with Medications M4 PT-IP Mobility and Gait Start: 01/19/25 16:04 Freq: Status: Active Protocol: Document 01/20/25 08:45 SP (Rec: 01/20/25 09:05 SP Laptop) PT-Bed Mobility Assessment Supine to Sit Supine to Sit Minimal Assistance,1 Person Assistance,Head of Bed Elevated,Bedrails Sit to Supine Sit to Supine Minimal Assistance,1 Person Assistance,Head of Bed Elevated,Bedrails Scooting Scooting to Edge of Minimal Assistance Bed Scooting Up and Down Standby Assistance in Bed PT-Transfer Assessment Sit to and From Stand Sit to and from Moderate Assistance,1 Person Assistance,Use of Upper Stand Extremities Equipment Transfer Assistive Gait Belt,Front Wheeled Walker Device Transfers Transfer Destination Chair,Toilet Transfer Technique pt ambulated with FWW Transfer Ability Level of Assist Contact Guard Assistance,Minimal Assistance,1 Person Assistance,Use of Upper Extremities Comments Mobility Comments Pt required Min A assist for RLE mobility to EOB. Trunk assist via gait belt to come to standing/sit Mod A x1 , Cues for proper hand placement self push from chair and bathroom rails to stand and reach back chair arms/ bathroom rail slow sit. c/o pain limited WB on RLE ( demonstrates approx 25-50% WB tolerance), heavy BUE WB on FWW. Pt c/o dizziness during mobility gait approx 12 ft with FWW CG/Min A. Short gait with Fww and stand step pivot transfer toilet to chair right outside bathroom. Pt had call light all needs in reach with breakfast. Recommending SNF vs Acute Rehab at this time for progression strength and increase functional mobillity. Pt in agreement. Gait Assessment Gait Gait Assistance Contact Guard Assist,Minimum Assistance,1 Person Assist Required: Distance (Feet) 12 Able to Maintain Yes Weight Bearing Status During Gait Assistive Devices Assistive Device Gait Belt,Front Wheeled Walker Orthotic/Prosthetic No Devices or Brace: Gait Deviations General Gait Pattern Antalgic,Decreased Stride Length,Decreased Feet Clearance,Flexed Trunk,Step-to Gait Factors Limiting Gait Function Factors Limiting Decreased Activity Tolerance,Decreased Strength,Limited Gait Function Range of Motion,Pain,Poor Balance,Poor Safety Awareness Comments Gait Comments see mobility comments. Stair Climbing Assessment Comments Stair Climbing Unable to assess at this time due to unable to unsteady Comments RLE with inability to fully put weight on RLE and c/o pain, has 22 stairs to enter home with BHRs needs to complete for safer DC home. PT-Balance Assessment Sitting Balance and Reactions Static Sitting Good Balance Ability Dynamic Sitting Fair Balance Ability Standing Balance and Reactions Static Standing Fair Balance Ability Dynamic Standing Fair Balance Ability Device Used FWW M5 PT-IP Objective Assessments Start: 01/19/25 16:04 Freq: Status: Active Protocol: Document 01/19/25 16:04 SAK (Rec: 01/19/25 16:20 SAK [id number]) Orientation Orientation/Cognition Level of Alertness Alert Orientation Name,Age,Situation Language Function No Deficits Noted Ability Safety Awareness Understands Safety Issues Memory Description No Deficits Noted Gross Range of Motion Upper Extremity ROM Assessment Within Functional Limits Lower Extremity ROM Assessment Within Functional Limits Strength Upper Extremity Strength Assessment Within Functional Limits Lower Extremity Strength Assessment Right Impaired Sensation Assessment Sensation Gross Sensation Right LE Impaired Sensation Paresthesia,Numbness Description Muscle Tone Muscle Tone WNL Yes M6 PT-IP Treatment Start: 01/19/25 16:04 Freq: Status: Active Protocol: Document 01/20/25 08:45 SP (Rec: 01/20/25 09:05 SP Laptop) Physical Therapy Treatment Education Education Provided Safety M7 PT-IP Assessment and Plan Start: 01/19/25 16:04 Freq: Status: Active Protocol: Document 01/20/25 08:45 SP (Rec: 01/20/25 09:05 SP Laptop) PT Summary Assessment and Plan Potential Rehabilitation Good Potential Status of Condition Evolving at Evaluation Summary Impairments Pain,Strength,Bed Mobility,Transfers,Gait,Activity Tolerance Progress Towards Slow Progress due to Pain,Slow Progress due to Medical Goals Issues,Slow Progress due to Activity Tolerance Assessment Summary Pt improved mobility this tx, Min A for RLE movement in bed, Min/Mod A x1 STS with FWW, c/o dizziness and pain with limited RLE WB demonstrated with FWW gait to bathroom 12 ft CG/Min A x1. Pt has girlfriend that can help but works during the day. Recommending SNF vs Acute Rehab at this time due to dizziness, uncontrolled pain during mobility, unable bear much weight on RLE to complete further distance walking and complete 22 stairs needs to get into home. Will continue to assess progress. Goals Bed Mobility Goal Independent Transfer Goal Independent Gait Goal Independent Gait Distance 150 Days to Meet Goals 7 Frequency of Treatment Frequency Of Once a Day Treatment Treatment Plan Physical Therapy Bed Mobility Training,Transfer Training,Gait Training, Treatment Plan Therapeutic Exercise,Discharge Planning,Neuromuscular Re-ed Other LE ex, Transfers, gait with FWW further distance, stair Recommendations and mgt if able. Next Treatment Focus Precautions Other Precautions WBAT RLE Weight Bearing Status Weight Bearing Weight Bear as Tolerated Status Recommendations To Nursing Amount of Assist 1 Person Assist Needed Discharge Recommendations PT Discharge SNF Rehab,Acute Rehab,SNF vs Acute Rehab Recommendations Equipment Needed for FWW Home Before Discharge Transportation Needs Wheelchair/Cabulance at Discharge - PT assist 1
[2025-01-20] MEDS: MULTIVITAMIN 1 TABLET 1 TAB PO (08:54)
[2025-01-20] MEDS: THIAMINE 200 MG in SODIUM CHLORIDE 0.9% 100 ML 408 MG IV (08:54)
[2025-01-20] MEDS: FOLIC ACID 1 MG TABLET PO (08:57)
[2025-01-20] MEDS: ESCITALOPRAM 10 MG TABLET 30 MG PO (09:41)
--- NOTE | 2025-01-20 09:55 | PC.NURSE ---
Addendum entered by Elise Laird RN 01/20/25 15:36: PO status continues unchanged, Med Q 3hr w. Oxycodone 10mg po for pain 10/28 X ray of right elbow done 1 PA to BR SL intact/patent. Call light w/in reach, calls appropriately for needs. Continue w/plan of care Original Note: Med w/ Oxycodone 10mg po for /10 discomfort, as per orders.
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
[2025-01-20] MEDS: PROPRANOLOL 10 MG TABLET 40 MG PO (20:05)
[2025-01-21] MEDS: ACETAMINOPHEN 325 MG TABLET 650 MG PO ×2 (00:55→20:13)
[2025-01-21 03:11] VITALS: BP 119/75; PULSE 65; RESP 17; O2SAT 97
[2025-01-21 04:48] LABS: Add Manual Diff / Slide Review NO; Hematocrit 35.5 % (41-53); Hemoglobin 11.9 g/dL (13.5-17.5); Lymphocytes Absolute Auto 1200 /uL (1100-4500); Mean Corpuscular HGB Conc 33.6 % (30-36); Mean Corpuscular Hemoglobin 33.8 PG (26-34); Mean Corpuscular Volume 100.7 fL (80-100); Platelet Count 116 X10^3/uL (150-400)
[2025-01-21] MEDS: LEVOTHYROXINE 100 MCG, LEVOTHYROXINE 75 MCG 175 MCG PO (05:03)
[2025-01-21 05:05] LABS: Alanine Aminotransferase 28 IU/L (<50); Albumin 3.6 g/dL (3.5-5.0); Albumin Globulin Ratio 1.2 (1.0-2.8); Alkaline Phosphatase 67 U/L (38-126); Blood Urea Nitrogen 13 mg/dL (9-20); Calcium 8.4 mg/dL (8.4-10.2); Carbon Dioxide 24 mmol/L (22-32); Chloride 103 mmol/L (98-107); Estimated Glomerular Filt Rate > 60 mL/min (>60); Globulin 3.0 g/dL (1.7-4.1); Glucose 112 mg/dL (70-99); HEMOLYSIS < 15 (0-50); Potassium 3.6 mmol/L (3.4-5.1); Sodium 133 mmol/L (137-145); Total Protein 6.6 g/dL (6.3-8.2)
[2025-01-21 07:00] VITALS: BP 135/87; PULSE 68; RESP 18; TEMP 36.6; O2SAT 99
[2025-01-21] MEDS: FOLIC ACID 1 MG TABLET PO (09:41)
[2025-01-21] MEDS: MULTIVITAMIN 1 TABLET 1 TAB PO (09:41)
[2025-01-21] MEDS: ESCITALOPRAM 10 MG TABLET 30 MG PO (09:41)
[2025-01-21] MEDS: PROPRANOLOL 10 MG TABLET 40 MG PO ×2 (09:41→20:12)
[2025-01-21] MEDS: THIAMINE 200 MG in SODIUM CHLORIDE 0.9% 100 ML 406 MG IV (09:45)
[2025-01-21 11:00] VITALS: BP 135/87; PULSE 70; TEMP 36.3; O2SAT 99
--- NOTE | 2025-01-21 12:41 | CM.DPC ---
Addendum entered by Breanna Olivier RN 01/21/25 13:34: Khadijah with [facility] requested [employer] info because patient's current [employer] coverage, [place], is not contracted with . [facility] should be able to bill through the the [employer] policy. Per Khadijah with [facility], they are not able to bill through the [employer] Claim policy. CM left VM with [employer] to see if they can accommodate the above. Original Note: CM spoke with patient to discuss SNF options. Patient requested to stay in [place]. [facility] updated.
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
[2025-01-21 16:00] VITALS: BP 117/88; PULSE 77; RESP 16; TEMP 36.2; O2SAT 98
--- NOTE | 2025-01-21 16:08 | PT.IPTN ---
Current Diagnoses Other specified fracture of right pubis, initial encounter for closed fracture (01/19/25) Physical Therapy Treatment Note M2 PT-IP Current Condition Start: 01/19/25 16:04 Freq: Status: Active Protocol: Document 01/20/25 08:45 SP (Rec: 01/20/25 09:05 SP Laptop) Physical Therapy Current Condition Current Condition Evaluation Date 01/19/25 Treatment Diagnosis pelvic fracture Onset Date 01/19/25 M3 PT-IP Subjective Start: 01/19/25 16:04 Freq: Status: Active Protocol: Document 01/21/25 16:08 [facility] (Rec: 01/21/25 16:24 [facility] Desktop) Subjective Physical Therapy Visit Type Type Treatment Note Visit Start Time 15:30 Visit Stop Time 16:08 Notes 38 min Number of RIGGING HELPER Visits 0 Physical Therapy Visit Comments Patient Comments At his apt he has two concrete steps without rail that go down then he has 22 outside steps to go up to get into his apt. He sleeps on the futon which is a little lower than his hospital bed in height. Patient Goals He wants to be well enough to go home Therapy Pain Assessment Pain When Pain Assessed During Mobility Pain Present Pain Present Pain Reported Location right hip Intensity 7 Scale Used Numeric (0 - 10) Description Aching,Tender,Tightness,With Movement Pain Behaviors Facial Grimacing,Wincing Pain Management Apply Cold,Modification of Treatment,Re-positioning, Techniques Timing of Activity with Medications M4 PT-IP Mobility and Gait Start: 01/19/25 16:04 Freq: Status: Active Protocol: Document 01/21/25 16:08 [facility] (Rec: 01/21/25 16:24 [facility] Desktop) PT-Bed Mobility Assessment Supine to Sit Supine to Sit Minimal Assistance Sit to Supine Sit to Supine Contact Guard Assistance,Minimal Assistance Scooting Scooting to Edge of Independent Bed PT-Transfer Assessment Sit to and From Stand Sit to and from Contact Guard Assistance,Minimal Assistance Stand Equipment Transfer Assistive Gait Belt,Front Wheeled Walker Device Transfers Transfer Destination Bed,Chair Transfer Technique Stand Step Pivot Transfer Ability Level of Assist Contact Guard Assistance,Minimal Assistance,Use of Upper Extremities Comments Mobility Comments He needs assist with right LE in/out of bed due to pain and functional weakness. During sit-stand he needs verbal cues for safe use of his UE's and to kick right foot out as needed to manage his pain. Educated pt to avoid pulling up with bilateral UE's on FWW to avoid falling back. Gait Assessment Gait Gait Assistance Contact Guard Assist,Minimum Assistance Required: Distance (Feet) 50 Assistive Devices Assistive Device Gait Belt,Front Wheeled Walker Gait Deviations General Gait Pattern Antalgic,Decreased Stride Length,Decreased Feet Clearance,Narrow Based Gait Factors Limiting Gait Function Factors Limiting Decreased Activity Tolerance,Decreased Strength,Pain Gait Function Comments Gait Comments Pt increased his distance of gait but before he got back to sitting it became very difficult for him to keep advancing right LE due to the increased pain. He has the most pain with weight bearing on right LE in stance and uses UE's to compensate. He needs verbal cues to avoid moving too far into the FWW which causes his hands to be behind him and causes decreased balance . Stair Climbing Assessment Comments Stair Climbing unable at this time due to pain and functional weakness Comments with gait PT-Balance Assessment Sitting Balance and Reactions Static Sitting Normal Balance Ability Dynamic Sitting Normal Balance Ability Standing Balance and Reactions Static Standing Good Balance Ability Dynamic Standing Fair Balance Ability Device Used FWW M5 PT-IP Objective Assessments Start: 01/19/25 16:04 Freq: Status: Active Protocol: Document 01/19/25 16:04 [facility] (Rec: 01/19/25 16:20 [facility] [id number]) Orientation Orientation/Cognition Level of Alertness Alert Orientation Name,Age,Situation Language Function No Deficits Noted Ability Safety Awareness Understands Safety Issues Memory Description No Deficits Noted Gross Range of Motion Upper Extremity ROM Assessment Within Functional Limits Lower Extremity ROM Assessment Within Functional Limits Strength Upper Extremity Strength Assessment Within Functional Limits Lower Extremity Strength Assessment Right Impaired Sensation Assessment Sensation Gross Sensation Right LE Impaired Sensation Paresthesia,Numbness Description Muscle Tone Muscle Tone WNL Yes M6 PT-IP Treatment Start: 01/19/25 16:04 Freq: Status: Active Protocol: Document 01/21/25 16:08 [facility] (Rec: 01/21/25 16:24 [facility] Desktop) Physical Therapy Treatment Exercises Exercises Ankle Pumps,Seated Knee Flexion/Extension Education Education Provided Safety Other Treatments Other Treatment Educated pt to decrease his fall risks. Performed He reports left hip flexion in sitting increases the pain on right hip/pelvic area. Educated pt in management of his pain during supine-sit by avoiding excessive hip abduction and minimizing hip flexion. M7 PT-IP Assessment and Plan Start: 01/19/25 16:04 Freq: Status: Active Protocol: Document 01/21/25 16:08 [facility] (Rec: 01/21/25 16:24 [facility] Desktop) PT Summary Assessment and Plan Summary Impairments Pain,ROM,Strength,Balance,Bed Mobility,Transfers,Gait, Activity Tolerance Progress Towards Slow Progress due to Pain,Slow Progress due to Activity Goals Tolerance Assessment Summary Frank is alert and sitting up in recliner. He reports feeling better in recliner because he feels stuck in bed because it is too painful to move. Educated pt in management of his pain related to his pelvic fracture. He was able to increase his distance of gait this visit but with increased pain and a progressive decline in the quality of his gait pattern. He was not able to progress to stair training this visit due to pain and functional weakness. Added stairs goals to his treatment plan. He has 22 steps to go up to get into his apartment. He reports no alternative places to live like friends or family that have a one level home. Continue to recommend SNF rehab to assist with his functional recovery and pain management. Goals Bed Mobility Goal Independent Transfer Goal Independent,Front Wheeled Walker Gait Goal Independent,Front Wheel Walker Gait Distance 150 feet Other Goals Up/down 2 steps without rails with min assist Up/down 22 steps with rail and crutch with SBA. Days to Meet Goals 12 Frequency of Treatment Frequency Of Once a Day Treatment Treatment Plan Physical Therapy Bed Mobility Training,Transfer Training,Gait Training, Treatment Plan Therapeutic Exercise,Balance Retraining,Discharge Planning,Neuromuscular Re-ed Other pain management of right pelvic fracture Recommendations and Next Treatment Focus Precautions Other Precautions right superior/inferior pubic rami fracture with hematoma right elbow swelling and bruising Weight Bearing Status Weight Bearing Weight Bear as Tolerated Status Recommendations To Nursing Amount of Assist 1 Person Assist Needed Discharge Recommendations PT Discharge SNF Rehab Recommendations Equipment Needed for FWW, defer to SNF Home Before Discharge Transportation Needs Wheelchair/Cabulance at Discharge - PT assist 1
[2025-01-21 20:20] VITALS: BP 129/88; PULSE 73; RESP 17; TEMP 36.5; O2SAT 99
[2025-01-22] MEDS: LEVOTHYROXINE 100 MCG, LEVOTHYROXINE 75 MCG 175 MCG PO (05:49)
[2025-01-22 07:11] LABS: Add Manual Diff / Slide Review NO; Hematocrit 36.7 % (41-53); Hemoglobin 12.5 g/dL (13.5-17.5); Lymphocytes Absolute Auto 1200 /uL (1100-4500); Mean Corpuscular HGB Conc 34.0 % (30-36); Mean Corpuscular Hemoglobin 34.3 PG (26-34); Mean Corpuscular Volume 101.0 fL (80-100); Platelet Count 113 X10^3/uL (150-400)
[2025-01-22 07:24] LABS: Alanine Aminotransferase 24 IU/L (<50); Albumin 3.8 g/dL (3.5-5.0); Albumin Globulin Ratio 1.2 (1.0-2.8); Alkaline Phosphatase 69 U/L (38-126); Blood Urea Nitrogen 12 mg/dL (9-20); Calcium 8.7 mg/dL (8.4-10.2); Carbon Dioxide 26 mmol/L (22-32); Chloride 103 mmol/L (98-107); Estimated Glomerular Filt Rate > 60 mL/min (>60); Globulin 3.2 g/dL (1.7-4.1); Glucose 107 mg/dL (70-99); HEMOLYSIS 16 (0-50); Potassium 4.3 mmol/L (3.4-5.1); Sodium 136 mmol/L (137-145); Total Protein 7.0 g/dL (6.3-8.2)
[2025-01-22 08:00] VITALS: BP 111/70; PULSE 74; RESP 16; TEMP 36.8; O2SAT 97
[2025-01-22] MEDS: PROPRANOLOL 10 MG TABLET 40 MG PO ×2 (08:29→20:51)
[2025-01-22] MEDS: ESCITALOPRAM 10 MG TABLET 30 MG PO (08:29)
[2025-01-22] MEDS: FOLIC ACID 1 MG TABLET PO (08:29)
[2025-01-22] MEDS: MULTIVITAMIN 1 TABLET 1 TAB PO (08:29)
[2025-01-22] MEDS: ACETAMINOPHEN 325 MG TABLET 650 MG PO ×2 (08:30→16:00)
[2025-01-22] MEDS: THIAMINE 200 MG in SODIUM CHLORIDE 0.9% 100 ML 406 MG IV (09:03)
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
[2025-01-22] MEDS: SENNOSIDES 8.6 MG TABLET PO ×2 (14:43→20:51)
[2025-01-22] MEDS: DOCUSATE 100 MG CAPSULE PO ×2 (14:43→20:52)
--- NOTE | 2025-01-22 16:55 | PT.IPTN ---
Current Diagnoses Other specified fracture of right pubis, initial encounter for closed fracture (01/19/25) Physical Therapy Treatment Note M2 PT-IP Current Condition Start: 01/19/25 16:04 Freq: Status: Active Protocol: Document 01/20/25 08:45 [facility] (Rec: 01/20/25 09:05 [facility] Laptop) Physical Therapy Current Condition Current Condition Evaluation Date 01/19/25 Treatment Diagnosis pelvic fracture Onset Date 01/19/25 M3 PT-IP Subjective Start: 01/19/25 16:04 Freq: Status: Active Protocol: Document 01/22/25 16:55 [facility] (Rec: 01/22/25 17:07 [facility] Desktop) Subjective Physical Therapy Visit Type Type Treatment Note Visit Start Time 13:25 Visit Stop Time 16:55 Notes 30 min 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 Physical Therapy Visit Comments Patient Comments He slept better in the recliner last night Patient Goals Get better Therapy Pain Assessment Pain When Pain Assessed After Treatment Pain Present Pain Present Pain Reported Location right hip Intensity 7 Scale Used Numeric (0 - 10) Description Aching,Tender,With Movement Pain Behaviors Facial Grimacing,Guarding,Wincing Pain Management Apply Cold,Elevation,Modification of Treatment,Re- Techniques positioning M4 PT-IP Mobility and Gait Start: 01/19/25 16:04 Freq: Status: Active Protocol: Document 01/22/25 16:55 [facility] (Rec: 01/22/25 17:07 [facility] Desktop) PT-Bed Mobility Assessment Supine to Sit Supine to Sit Minimal Assistance Sit to Supine Sit to Supine Minimal Assistance Scooting Scooting to Edge of Independent Bed PT-Transfer Assessment Sit to and From Stand Sit to and from Contact Guard Assistance,Use of Upper Extremities Stand Equipment Transfer Assistive Gait Belt,Front Wheeled Walker Device Transfers Transfer Destination Bed,Chair Transfer Technique Stand Step Pivot Transfer Ability Level of Assist Contact Guard Assistance,Use of Upper Extremities Comments Mobility Comments verbal cues during sit-stand for safe use of UE's and to kick out right LE to manage his pain, he needs more cues as he fatigues and his pain increased 4/10 pain at rest and 7/10 pain after activity Gait Assessment Gait Gait Assistance Minimum Assistance Required: Distance (Feet) 50 Assistive Devices Assistive Device Gait Belt,Front Wheeled Walker Gait Deviations General Gait Pattern Antalgic,Decreased Stride Length,Decreased Feet Clearance Factors Limiting Gait Function Factors Limiting Decreased Activity Tolerance,Decreased Strength,Pain, Gait Function Poor Balance Comments Gait Comments intermittent losses of balance posteriorly during gait, as he fatigues and his pain increases during gait it gets more challenging for him to take functional steps with right LE and to weight bear on UE's. Pt now using bariatric FWW which he feels supports him better. He needs multiple standing rest breaks to complete 50 feet of gait and his gait pattern becomes increasing unsafe before he finishes the distance. Stair Climbing Assessment Comments Stair Climbing unable at this time Comments PT-Balance Assessment Sitting Balance and Reactions Static Sitting Normal Balance Ability Dynamic Sitting Good Balance Ability Standing Balance and Reactions Static Standing Fair Balance Ability Dynamic Standing Fair Balance Ability Device Used FWW M5 PT-IP Objective Assessments Start: 01/19/25 16:04 Freq: Status: Active Protocol: Document 01/19/25 16:04 [facility] (Rec: 01/19/25 16:20 [facility] [id number]) Orientation Orientation/Cognition Level of Alertness Alert Orientation Name,Age,Situation Language Function No Deficits Noted Ability Safety Awareness Understands Safety Issues Memory Description No Deficits Noted Gross Range of Motion Upper Extremity ROM Assessment Within Functional Limits Lower Extremity ROM Assessment Within Functional Limits Strength Upper Extremity Strength Assessment Within Functional Limits Lower Extremity Strength Assessment Right Impaired Sensation Assessment Sensation Gross Sensation Right LE Impaired Sensation Paresthesia,Numbness Description Muscle Tone Muscle Tone WNL Yes M6 PT-IP Treatment Start: 01/19/25 16:04 Freq: Status: Active Protocol: Document 01/22/25 16:55 [facility] (Rec: 01/22/25 17:07 [facility] Desktop) Physical Therapy Treatment Exercises Exercises Ankle Pumps,Gluteal Sets,Quad Sets,Heel Slides Education Education Provided Safety Other Treatments Other Treatment assistance for heels slides bilaterally with limited Performed ROM to manage pain 10 reps each exercise M7 PT-IP Assessment and Plan Start: 01/19/25 16:04 Freq: Status: Active Protocol: Document 01/22/25 16:55 [facility] (Rec: 01/22/25 17:07 [facility] Desktop) PT Summary Assessment and Plan Summary Impairments Pain,ROM,Strength,Balance,Bed Mobility,Transfers,Gait, Activity Tolerance Progress Towards Slow Progress due to Pain,Slow Progress due to Activity Goals Tolerance Assessment Summary Frank continues to progress slowly in therapy. He spends a lot of time up in the recliner which he reports is more comfortable. His pain and fatigue limit his distances of gait and he is unable to progress to stair training. He has 22 steps to get up to get into his apt. He shows good effort with therapy treatment. Continue to recommend SNF rehab at discharge. Goals Bed Mobility Goal Independent Transfer Goal Independent,Front Wheeled Walker Gait Goal Independent,Front Wheel Walker Gait Distance 150 feet Other Goals Up/down 2 steps without rails with min assist Up/down 22 steps with rail and crutch with SBA. Days to Meet Goals 12 Frequency of Treatment Frequency Of Once a Day Treatment Treatment Plan Physical Therapy Bed Mobility Training,Transfer Training,Gait Training, Treatment Plan Therapeutic Exercise,Balance Retraining,Discharge Planning,Neuromuscular Re-ed Other pain management of right pelvic fracture Recommendations and Next Treatment Focus Precautions Other Precautions right superior/inferior pubic rami fracture with hematoma right elbow swelling and bruising Weight Bearing Status Weight Bearing Weight Bear as Tolerated Status Recommendations To Nursing Amount of Assist 1 Person Assist Needed Discharge Recommendations PT Discharge SNF Rehab Recommendations Equipment Needed for FWW, defer to SNF Home Before Discharge Transportation Needs Wheelchair/Cabulance at Discharge - PT assist 1
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
[2025-01-22 19:00] VITALS: BP 113/74; PULSE 76; RESP 22; TEMP 36.5; O2SAT 98
[2025-01-23] MEDS: LEVOTHYROXINE 100 MCG, LEVOTHYROXINE 75 MCG 175 MCG PO (05:28)
[2025-01-23 06:08] LABS: Add Manual Diff / Slide Review NO; Hematocrit 35.4 % (41-53); Hemoglobin 12.1 g/dL (13.5-17.5); Lymphocytes Absolute Auto 1300 /uL (1100-4500); Mean Corpuscular HGB Conc 34.2 % (30-36); Mean Corpuscular Hemoglobin 34.6 PG (26-34); Mean Corpuscular Volume 101.2 fL (80-100); Platelet Count 134 X10^3/uL (150-400)
[2025-01-23 06:23] LABS: Alanine Aminotransferase 21 IU/L (<50); Albumin 3.7 g/dL (3.5-5.0); Albumin Globulin Ratio 1.2 (1.0-2.8); Alkaline Phosphatase 64 U/L (38-126); Blood Urea Nitrogen 14 mg/dL (9-20); Calcium 9.0 mg/dL (8.4-10.2); Carbon Dioxide 26 mmol/L (22-32); Chloride 102 mmol/L (98-107); Estimated Glomerular Filt Rate > 60 mL/min (>60); Globulin 3.1 g/dL (1.7-4.1); Glucose 110 mg/dL (70-99); HEMOLYSIS < 15 (0-50); Potassium 3.7 mmol/L (3.4-5.1); Sodium 134 mmol/L (137-145); Total Protein 6.8 g/dL (6.3-8.2)
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
[2025-01-23 08:18] VITALS: BP 127/79; PULSE 68; RESP 14; TEMP 36.2; O2SAT 98
[2025-01-23] MEDS: ESCITALOPRAM 10 MG TABLET 30 MG PO (09:01)
[2025-01-23] MEDS: DOCUSATE 100 MG CAPSULE PO ×2 (09:01→21:17)
[2025-01-23] MEDS: SENNOSIDES 8.6 MG TABLET PO ×2 (09:01→21:18)
[2025-01-23] MEDS: MULTIVITAMIN 1 TABLET 1 TAB PO (09:02)
[2025-01-23] MEDS: THIAMINE 100 MG TABLET PO (09:02)
[2025-01-23] MEDS: FOLIC ACID 1 MG TABLET PO (09:02)
[2025-01-23] MEDS: PROPRANOLOL 10 MG TABLET 40 MG PO ×2 (09:03→21:18)
[2025-01-23] MEDS: SODIUM CHLORIDE 0.9% FLUSH 10 ML IV ×2 (09:04→21:18)
--- NOTE | 2025-01-23 15:46 | CM.DPC ---
DCP SNF Cont: Per MD, pt making progress and not yet stable for discharge today. Per PT, feel pt would still benefit from SNF at d/c. SW followed up on prior faxed SNF referrals: [facility], likely could not start auth for another 3 days as they are full [facility]- left msg to inquire about beds and if they can accept [facility]- made referral, currently have limited male beds, follow up Sat or Sat. Plan: SW to follow closely for pt progress with PT for likely need of home with HH plan if SNFs cannot accept. SW to continue working on SNF plan and following up with above SNFs and maybe making additional referrals. Pt's [facility] insurance and his ETOH could be barrier to SNF placement. Noelle Draper MSW
[2025-01-23] MEDS: ENOXAPARIN 40 MG/0.4 ML SYRINGE SUBCUT (19:08)
[2025-01-23 20:00] VITALS: BP 122/79; PULSE 74; RESP 12; TEMP 36.6; O2SAT 96
[2025-01-24] MEDS: LEVOTHYROXINE 100 MCG, LEVOTHYROXINE 75 MCG 175 MCG PO (06:50)
[2025-01-24 07:59] VITALS: BP 122/82; PULSE 74; RESP 16; TEMP 36.2; O2SAT 99
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
[2025-01-24] MEDS: THIAMINE 100 MG TABLET PO (09:07)
[2025-01-24] MEDS: FOLIC ACID 1 MG TABLET PO (09:08)
[2025-01-24] MEDS: ESCITALOPRAM 10 MG TABLET 30 MG PO (09:08)
[2025-01-24] MEDS: MULTIVITAMIN 1 TABLET 1 TAB PO (09:08)
[2025-01-24] MEDS: DOCUSATE 100 MG CAPSULE PO ×2 (09:09→20:36)
[2025-01-24] MEDS: PROPRANOLOL 10 MG TABLET 40 MG PO ×2 (09:09→20:37)
[2025-01-24] MEDS: SENNOSIDES 8.6 MG TABLET PO ×2 (09:09→20:36)
[2025-01-24 20:00] VITALS: BP 136/84; PULSE 76; RESP 16; TEMP 36.1; O2SAT 98
[2025-01-25] MEDS: LEVOTHYROXINE 100 MCG, LEVOTHYROXINE 75 MCG 175 MCG PO (05:57)
[2025-01-25 08:00] VITALS: BP 152/86; PULSE 76; RESP 18; TEMP 36.4; O2SAT 98
[2025-01-25] MEDS: PROPRANOLOL 10 MG TABLET 40 MG PO ×2 (10:10→21:38)
[2025-01-25] MEDS: ESCITALOPRAM 10 MG TABLET 30 MG PO (10:11)
[2025-01-25] MEDS: FOLIC ACID 1 MG TABLET PO (10:12)
[2025-01-25] MEDS: DOCUSATE 100 MG CAPSULE PO ×2 (10:12→21:38)
[2025-01-25] MEDS: SENNOSIDES 8.6 MG TABLET PO ×2 (10:12→21:38)
[2025-01-25] MEDS: THIAMINE 100 MG TABLET PO (10:12)
[2025-01-25] MEDS: MULTIVITAMIN 1 TABLET 1 TAB PO (10:12)
[2025-01-25] MEDS: ACETAMINOPHEN 325 MG TABLET 650 MG PO ×2 (10:50→21:38)
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
--- NOTE | 2025-01-25 11:35 | PC.NURSE ---
Patient given 5mg of po oxycodone and stated that he was comfortable, tylenol also given. see patient and do rounds and he stated he was having pain again. He told my preceptee that he was in 7/10 pain, and then 2 minutes later stated he said 9. This was not true as my student RN wrote the pain level down. He states also that he is comfortable just sitting in the chair. Patient is not communicating properly with staff. We are going to give him another 5mg of oxycodone and some iv lasix for his swollen legs and feet.
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
[2025-01-25 20:00] VITALS: BP 137/81; PULSE 78; RESP 18; TEMP 36.4; O2SAT 97
[2025-01-25] MEDS: SODIUM CHLORIDE 0.9% FLUSH 10 ML IV (21:39)
[2025-01-26] MEDS: LEVOTHYROXINE 100 MCG, LEVOTHYROXINE 75 MCG 175 MCG PO (06:22)
[2025-01-26 09:00] VITALS: BP 135/80; PULSE 74; RESP 14; TEMP 37.1; O2SAT 98
[2025-01-26] MEDS: FOLIC ACID 1 MG TABLET PO (09:35)
[2025-01-26] MEDS: ESCITALOPRAM 10 MG TABLET 30 MG PO (09:35)
[2025-01-26] MEDS: MULTIVITAMIN 1 TABLET 1 TAB PO (09:35)
[2025-01-26] MEDS: THIAMINE 100 MG TABLET PO (09:35)
[2025-01-26] MEDS: DOCUSATE 100 MG CAPSULE PO (09:35)
[2025-01-26] MEDS: PROPRANOLOL 10 MG TABLET 40 MG PO (09:35)
[2025-01-26] MEDS: SENNOSIDES 8.6 MG TABLET PO (09:35)
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
--- NOTE | 2025-01-26 12:34 | CM.DPNOTE ---
DCP Continued: Reviewed EMR and team rounds for pt?s medical status. Per hospitalist, pt cleared for discharge to SNF when auth obtained. Per Mami at [facility], pt auth obtained and transport arranged for 1230. ROBOTYPE OPERATOR sent MAR, PASRR, Med list, DC Summary and Rx to Admissions via secure email, placed in transfer packet. RN report# provided to pt RN. Plan: [facility] via facility van. CM Team will continue to follow for coordination of discharge plans. MARCELO Arellano
--- NOTE | 2025-01-26 16:09 | PC.NURSE ---
Report called to JOHN at [facility] [phone]. Patient was medicated with oxycodone just prior to leaving for pain. Patient has no further questions or concerns at this time.
== END 2025-01-26 12:21 | DRG 341 ==
LOC: ED 15:26 → AC 16:24
PROVIDERS: Admitting Provider Internal Medicine; Emergency Provider Emergency Medicine; PCP Registered Nurse Diabetes Educator; Referring Provider Emergency Medicine; Visit Provider Internal Medicine
DX: S32.511A Fracture of superior rim of right pubis, initial encounter for closed fracture (principal); F10.239 Alcohol dependence with withdrawal, unspecified; S32.591A Other specified fracture of right pubis, initial encounter for closed fracture; N50.89 Other specified disorders of the male genital organs; S50.01XA Contusion of right elbow, initial encounter; E06.3 Autoimmune thyroiditis; F41.9 Anxiety disorder, unspecified; F32.9 Major depressive disorder, single episode, unspecified; Y90.9 Presence of alcohol in blood, level not specified; V03.10XA Pedestrian on foot injured in collision with car, pick-up truck or van in traffic accident, initial encounter; Z87.891 Personal history of nicotine dependence; Z79.890 Hormone replacement therapy
CPT/HCPCS: 36415; 71045; 71250; 73070; 73502; 74176; 80053; 80305; 81001; 85025; 96374; 96375; 97110; 97116; 97162; 97165; 97530; 97535; 99285; A9270; J1171; J1650; J1885; J2405; J2560; J7030; J7050